=== PATIENT | female | born 2000 | race Caucasian/White ===

== ENCOUNTER 2021-09-08 19:21 | Emergency (ER) | payer OTHER, SELFPAY ==
--- NOTE | ~2021-09-08 | CT_ITS ---
EXAMINATION: CT abdomen pelvis w con INDICATION: Right upper quadrant pain TECHNIQUE: Computed tomographic images of the abdomen and pelvis were obtained after the administrati on of 100 cc of Omnipaque 350 intravenous contrast. The dose-length product (DLP) was 1171.14 mGy-cm. Automated exposure control and iterative reconstruction technique were employed. COMPARISON: None available FINDINGS: Minimal dependent atelectasis is present in the lung bases. The heart size is normal. The l iver, spleen, pancreas, gallbladder, and adrenal glands are normal. The kidneys are unremarkable. No pathologically enlarged abdominal or pelvic lymph nodes are identified. There is no free intraperiton eal gas or evidence of bowel obstruction. The appendix is normal. There is a 3.3 cm mass of the right ovary containing macroscopic fat, calcification, and soft tissue density, consistent with a dermoid. IMPRESSION: 1. No CT correlate for the patient's symptoms. 2. 3.3 cm right ovarian dermoid. Correlation with any prior imaging is recommended. Consider ultrasou nd follow-up in 8-12 weeks if unavailable. Reviewed, dictated and finalized at location F. THESIOLOG[employer] TEACHER IMPRESSION: 1. No CT correlate for the patient's symptoms. 2. 3.3 cm right ovarian dermoid. Correlation with any prior imaging is recommen ded. Consider ultrasound follow-up in 8-12 weeks if unavailable.
[2021-09-08 19:49] VITALS: BP 128/79; PULSE 50; RESP 18; TEMP 36.1; O2SAT 100
--- NOTE | 2021-09-08 19:52 | PC.NURSE ---
states SI attempt was a long time ago . Also states her presenting pain has been present for a long time and it is hard for me to tell when asked to describe the pain.
[2021-09-08 20:41] LABS: Basophils Absolute Auto 0.1 K/mm3 (0.0-0.1); Basophils Percent Auto 0.4 % (0.2-1.2); Eosinophils Absolute Auto 0.1 K/mm3 (0-0.3); Hematocrit 45.1 % (37.0-47.0); Hemoglobin 14.9 g/dL (12.0-15.0); Immature Granulocyte Absolute 0.03 K/mm3 (0.00-0.031); Immature Granulocyte Percent A 0.3 % (0-0.5); Lymphocytes Absolute Auto 2.69 K/mm3 (0.9-3.2); Lymphocytes Percent Auto 23.4 % (18.3-44.2); Mean Corpuscular Hemoglobin 29.2 pg (26-34); Mean Corpuscular Volume 88.3 fl (80-100); Mean Platelet Volume 10.1 fl (7.4-10.4); Monocytes Absolute Auto 0.6 K/mm3 (0.1-0.6); Monocytes Percent Auto 4.8 % (2.6-8.5); Neutrophils Absolute Auto 8.1 K/mm3 (1.3-6.7); Neutrophils Percent Auto 70.1 % (45.5-73.1); Platelet Count Result 337 k/mm3 (150-375); Red Blood Count 5.11 M/mm3 (4.2-5.4); Red Cell Distribution Width 13.2 % (11.5-14.5); White Blood Count 11.5 K/mm3 (4.5-10.0)
--- NOTE | 2021-09-08 20:44 | ED.ABDPAIN ---
HPI - Abdominal Pain General Chief Complaint: Abdominal Pain Stated Complaint: abd pain/vomiting Time Seen by Provider: 09/08/21 20:16 Source: patient and RN notes reviewed Mode of arrival: ambulatory Limitations: no limitations History of Present Illness HPI narrative: This is 21 year old female with history of ovarian cyst who presents for evaluation of right upper abdominal pain. She developed right upper abdominal pain with nausea and vomiting today. She reports 2 episodes of emesis. She was worried her pain was due to her right ovarian cyst. She describes her pain has cramping and nonradiating. Her pain has resolved at this time. She denies any fever, chills or urinary complaints. She reports diarrhea but that is normal for her. Related Data Home Medications Medication Instructions Recorded Confirmed paroxetine HCl mg PO 09/08/21 trazodone DAILY 09/08/21 Allergies Allergy/AdvReac Type Severity Reaction Status Date / Time No Known Allergies Allergy Mild Verified 09/08/21 19:53 Review of Systems Review of Systems: All systems reviewed & are unremarkable except as noted in HPI and below PMFSH Past Medical History Medical History (Updated 09/08/21 @ 23:17 by Laura Bedolla MD) Ovarian cyst, right Social History Social History (Updated 09/08/21 @ 20:51 by Laura Bedolla MD) Smoking status: Never smoker Exam Const: General: no acute distress and alert Orientation/consciousness: patient oriented x3 Eyes: EOM: EOMs intact bilaterally Chest: Chest palpation & inspection: normal inspection of the chest Resp: Effort & Inspection: normal respiratory effort and no retractions Auscultation: clear to auscultation bilaterally Cardio: Rate: regular rate Rhythm: regular rhythm Heart sounds: no murmurs GI: GI Palp: Yes Soft to palpation, Yes Tenderness to palpation present (GI) (mild RUQ), No Guarding due to palpation present (GI) and No Rigid due to palpation Auscultation: normal bowel sounds Neuro: General: patient oriented x3, moves all extremities and CN's II-XI intact bilaterally Psych: Mental Status: mental status grossly normal Affect: normal affect Course Reevaluation(s) Reevaluation #1: I Discussed with patient and her mother CT findings. No gallstones or cholecystitis on CT Date: 09/08/21 Time: 23:15 Vital Signs Vital signs: Vital Signs Temperature 96.9 F L 09/08/21 19:49 Pulse Rate 50 L 09/08/21 19:49 Respiratory Rate 18 09/08/21 19:49 Blood Pressure 128/79 09/08/21 19:49 Pulse Oximetry 100 09/08/21 19:49 Temperature 96.9 F L 09/08/21 19:49 Pulse Rate 63 09/09/21 00:00 Respiratory Rate 18 09/09/21 00:00 Blood Pressure 105/63 09/09/21 00:00 Pulse Oximetry 99 09/09/21 00:00 MDM - Abdominal Pain Lab Data Attestation: I reviewed the patient's lab results. Result diagrams: 09/08/21 20:34 09/08/21 20:34 Labs: Lab Results 09/08/21 09/08/21 09/08/21 Range/Units 20:34 20:34 20:34 WBC 11.5 H (4.5-10.0) K/mm3 RBC 5.11 (4.2-5.4) M/mm3 Hgb 14.9 (12.0-15.0) g/dL Hct 45.1 (37.0-47.0) % MCV 88.3 (80-100) fl MCH 29.2 (26-34) pg MCHC 33.0 (32-36) g/dl RDW 13.2 (11.5-14.5) % Plt Count 337 (150-375) k/mm3 MPV 10.1 (7.4-10.4) fl Immature Gran % (Auto) 0.3 (0-0.5) % Neut % (Auto) 70.1 (45.5-73.1) % Lymph % (Auto) 23.4 (18.3-44.2) % Anderson % (Auto) 4.8 (2.6-8.5) % Eos % (Auto) 1.0 (0-4.4) % Baso % (Auto) 0.4 (0.2-1.2) % Lymph # (Auto) 2.69 (0.9-3.2) K/mm3 Anderson # (Auto) 0.6 (0.1-0.6) K/mm3 Eos # (Auto) 0.1 (0-0.3) K/mm3 Baso # (Auto) 0.1 (0.0-0.1) K/mm3 Abs Immat Gran (auto) 0.03 (0.00-0.031) K/mm3 Absolute Neuts (auto) 8.1 H (1.3-6.7) K/mm3 Absolute Nucleated RBC 0.0 (0.0-0.012) K/mm3 Nucleated RBC % 0.0 (0.0-0.2) % Sodium 137 (137-145) mmol/L Potassium 4.0 (3.4-5.0) mmol/L Chl
[2021-09-08 20:57] LABS: Alanine Aminotransferase 19 U/L (4-35); Albumin Level 4.8 g/dL (3.5-5.1); Alkaline Phosphatase 63 U/L (38-126); Anion Gap 11 mmol/L (8-16); Aspartate Amino Transferase 23 U/L (14-36); Bilirubin,Total 0.2 mg/dL (0.2-1.3); Blood Urea Nitrogen 10 mg/dL (7-17); Calcium 9.6 mg/dL (8.4-10.2); Carbon Dioxide 24 mmol/L (22-30); Chloride 102 mmol/L (98-107); Estimated CRCL calculation 120 ml/min; Estimated Glomerular Filt Rate > 60; Glucose 119 mg/dL (65-110); Lipase 79 U/L (23-300); Sodium 137 mmol/L (137-145)
[2021-09-08 21:02] LABS: Add Urine Microscopic? YES; Appearance Urine Cloudy (Clear); Bacteria Urine Trace /hpf; Bilirubin Urine Negative (Negative); Blood Urine 3+ (Negative); Color Urine Yellow (Yellow); Glucose Urine UA Negative (Negative); Ketones Urine Negative (Negative); Leukocyte Esterase Ur Negative LEU/UL (Negative); Mucus Urine Rare /lpf; Nitrate Urine Negative (Negative); Protein Urine 1+ mg/dL (Negative); RBC Urine >75 /hpf (0-2); Specific Grav Ur 1.021 (1.001-1.035); Squamous Epithelial Cell Urine Few /hpf (Few); Urobilinogen Urine Negative mg/dL (<2.0)
[2021-09-08 21:43] VITALS: BP 136/84; PULSE 64; RESP 16; O2SAT 99
[2021-09-09] VITALS: BP 105/63; PULSE 63; RESP 18; O2SAT 99
== END 2021-09-09 00:02 | disposition home or self-care (01) ==
PROVIDERS: Emergency Provider General Practice
DX: D27.0 Benign neoplasm of right ovary (principal)
CPT/HCPCS: 36415; 74177; 80053; 81001; 81025; 83690; 85025; 99284; Q9967

== ENCOUNTER 2021-10-01 01:52 | Day surgery (SDC) | payer OTHER, SELFPAY ==
[2021-09-29 15:18] VITALS: BMI 40.2
--- NOTE | 2021-09-29 15:25 | PC.NURSE ---
Report to the Outpatient Waiting Room, entrance under the green pavilion located off [facility], at time 0600 on date 10/01/21. OR Time: 0730. - You will be asked a series of questions to screen for COVID 19 for your protection. - A mask is required within the hospital. - No visitors are allowed at this time. Preoperative COVID Testing Requirements: No COVID Test needed if: (proof is required; if not received patient will have Rapid Test prior to entry) - Patient has received COVID Vaccine at least 14 days prior to procedure date or - Patient has positive COVID test result within last 90 days of surgery date. COVID Test needed if above criteria is not met Patients may have clear liquids (water, carbonated beverages, clear teas, apple juice) until 3 hours prior to surgery with a maximum of 20 ounces. - No food from midnight until time of surgery Take the following medications with a SIP of water the morning of surgery: NONE Medications to discontinue per physician: VITAMINS/SUPPLEMENTS Date to take last dose: NO MORE UNTIL AFTER SURGERY Please no make-up, nail mont[place]gr[place], hairspray, perfume, deodorant, or body powder the day of surgery. No jewelry (including any body piercings) or valuables the day of surgery, leave them at home. Please take a shower or bath the night before, or the morning of, surgery with an antibacterial soap. Wear comfortable, loose fitting clothing. - Jewelry must be removed prior to entering the operating room. Rings and piercings that are not removed may be cut off. - The hospital will not accept responsibility for valuables. - Please leave all valuables, including medications, at home the day of surgery. If you are going home after surgery, a licensed city driver must drive you home. - NO public transportation without another adult. - We recommend that an adult stay with you for 24 hours following discharge. - We also recommend that you do not drive, make important decision, drink alcoholic beverages, or take any drugs that were not prescribed by your health care provider for at least 24 hours after your discharge time. Follow any additional instructions given to you from your surgeon. Telephone instructions given to ISAURO YO and asked if any additional questions and then verbalized understanding. Patient advised to call surgeon office or pre surgery nurse liaison [phone] if any additional questions.
[2021-10-01] VITALS (7 sets, daily range): BP systolic 96–111; BP diastolic 55–67; PULSE 56–103; RESP 16–20; TEMP 36.2–36.3; O2SAT 95–100
[2021-10-01] MEDS: ACETAMINOPHEN 500 MG TABLET 1000 MG PO (06:29)
[2021-10-01] MEDS: LACTATED RINGERS 1,000 ML 30 ML IV CONT (06:30)
[2021-10-01] MEDS: KETOROLAC 15 MG/ML VIAL (*BKC) IV PUSH (06:38)
--- NOTE | 2021-10-01 07:08 | P.PNAN_ITS ---
Anes - Initial Pre Proc Eval Procedure: Operation Date: 10/01/21 07:30 Proposed Procedures p Laparoscopic Right Ovarian Cystectomy - Rubio Rico MD Date/Time: 10/01/21 07:08 Surgeon: Rubio Rico MD Pre Op Diagnosis: Benign Neoplasm of Unspecified Origin Patient Data Age: 21 Gender: F Height: 1.57 m Weight: 95 kg Allergies Allergy/AdvReac Type Severity Reaction Status Date / Time No Known Allergies Allergy Mild Verified 09/29/21 15:16 Home Medications Medication Instructions Recorded Confirmed Type paroxetine HCl 30 mg PO HS 09/08/21 10/01/21 History trazodone 25 mg PO HS 09/08/21 10/01/21 History cholecalciferol (vitamin D3) 125 mcg PO HS 09/29/21 10/01/21 History [Vitamin D3] loratadine [Claritin] 10 mg PO DAILY 09/29/21 10/01/21 History Patient hx anesthesia problems: none Family hx anesthesia problems: none Results Review: All pre-operative results and documents have been reviewed as part of the pre-operative evaluation. [facility] Past Medical History Medical History Anxiety Depression Ovarian cyst, right Social History Social History Smoking status: Current every day smoker Tobacco type: e-cigarettes/vaping Alcohol intake: never Substance use: current Substance use type: marijuana Living arrangements: with family Spiritual care concerns: No Anes - Eval Final PreProcedure Day of Procedure 10/01/21 07:08 Patient weight: obese Heart: regular rate and rhythm Lungs: clear to auscultation Airway: Mallampati scale class II Neurological: alert and oriented Last oral intake: >/= 8 hours ASA classification: II Emergent: no Anesthetic plan: proceed Anesthesia type and monitoring: general ETT and standard monitoring Results Review: All pre-operative results and documents have been reviewed as part of the pre-operative evaluation. Informed Consent: The patient's anesthetic plan and its attendant risks and benefits were discussed with the patient/family/POA. Questions were solicited and answers provided to the satisfaction of the patient/family/POA.
--- NOTE | 2021-10-01 07:21 | WPDHPUPDATE1 ---
History and Physical Update Update Date/Time: 10/01/21 07:21 History and Physical has been reviewed, including an updated exam of the patient. There are NO changes in the patient's condition. Risks, benefits, and alternatives have been discussed and questions answered. Patient agrees to proceed with procedure.
--- NOTE | 2021-10-01 08:38 | W.PM.PROC2 ---
Procedure Note - Detailed Date of Procedure 10/01/21 Pre-op Diagnosis Right ovarian mass-teratoma. Post-op Diagnosis same Procedure Performed Laparoscopic resection of right ovarian mass. Surgeon Rubio Rico MD Anesthesia general Indications Pelvic pain Findings 5 cm right ovarian mass, otherwise normal pelvic organs. Description of Procedure The patient was taken to the operating room. She was prepped and draped in the dorsal lithotomy position after induction general anesthesia. A 5 mm incision was made with a scalpel on the abdominal skin in the left upper quadrant of the abdomen. A 5 mm trocar was inserted into the intra-abdominal cavity under direct visualization the scope. In the same fashion a 11 mm left lower quadrant trocar was inserted and a 11 mm infraumbilical trocar was inserted. The right ovary was grasped. A an incision was made at an area suspected to be the margin of the mass. The margins the mass peeled away from the ovarian parenchyma and a distinct way. It could be easily . About 1/3 of the ovary was left on the adnexa. The dissection was primarily done with blunt force. Some a incisions were made using scissors to make it free of the ovary. The mass was placed in endobag and taken out the left lower quadrant trocar site. The cut surface of the ovary was cauterized and made hemostatic with unipolar and LigaSure cautery. The pelvis was irrigated. The pneumoperitoneum was reduced. The trocars were removed. Skin was closed with subcuticular 4 micro. The patient's incisions were covered with Dermabond. She was taken recovery room in stable condition. Sponge lap and needle counts were correct x2. Estimated Blood Loss 20 Pathology yes Complications No immediate complications Condition stable Disposition same day
== END 2021-10-01 10:45 | disposition home or self-care (01) ==
PROVIDERS: Visit Provider Obstetrics & Gynecology
PROC: (CPT 49320; principal; 2021-10-01 07:30)
DX: D27.0 Benign neoplasm of right ovary (principal); F41.8 Other specified anxiety disorders; F12.90 Cannabis use, unspecified, uncomplicated; F17.290 Nicotine dependence, other tobacco product, uncomplicated; E66.9 Obesity, unspecified; Z68.38 Body mass index [BMI] 38.0-38.9, adult
CPT/HCPCS: 58661; 88304; 88305; A9270; J1100; J1885; J2250; J2405; J2704; J3010; J7030; J7120

== ENCOUNTER 2022-01-21 13:49 | Emergency (ER) | payer OTHER, SELFPAY ==
[2022-01-21] VITALS (8 sets, daily range): BP systolic 122–138; BP diastolic 67–86; PULSE 62–112; RESP 15–17; TEMP 36.6; O2SAT 97–100
--- NOTE | ~2022-01-21 | US_ITS ---
US right upper quadrant INDICATION: Abnormal CT. PROCEDURE: Realtime right upper abdominal ultrasound. COMPARISON: No prior studies for comparison. FINDINGS: The pancreas is normal without focal mass or pancreatic ductal dilation. Liver echotexture is normal without focal mass or intrahepatic biliary dilatation. There is normal directional flow i n the portal vein. Gallbladder wall is thickened and edematous. There are stones in the gallbladder fundus. Common bile duct measures 4 mm. Positive sonographic Cervantes's sign. IMPRESSION: 1: Cholelithiasis with thickened edematous wall and positive sonographic Cervantes's sign. This constell ation of findings is compatible with acute cholecystitis. Clinically correlate. Reviewed, dictated and finalized at location A. IMPRESSION: 1: Cholelithiasis with thickened edematous wall and positive sonographic Cervantes 's sign. This constellation of findings is compatible with acute cholecystitis. Clinically correlate.
--- NOTE | ~2022-01-21 | CT_ITS ---
EXAMINATION: CT abdomen pelvis w con DATE: 01/21/2022 15:20 INDICATION: Abdominal pain TECHNIQUE: Computed tomography (CT) of the abdomen and pelvis was performed with 75 mL Omnipaque-300 intravenous contrast. Automated exposure control and iterative reconstruction technique were employed . The dose-length product was 1055.56 mGy-cm. COMPARISON: 09/08/2021 FINDINGS: Lung bases are clear. Visualized inferior heart is normal. No pericardial or pleural effusion. Small sliding-type hiatal hernia. There is diffuse edematous wall thickening of the gallbladder which is di lated to 4.7 cm in maximal diameter. Liver, spleen, pancreas, bilateral adrenal glands and kidneys ar e normal. Bowels including appendix are normal. Bladder, anteverted uterus and right adnexa are jessica l. 2 cm peripherally enhancing corpus luteum cyst at the right ovary. Small amount of ascites at the foramen of [place] and in the pelvis. No abscess or free intraperitoneal gas. No pathologically enlar ged abdominal or pelvic lymphadenopathy. Bones are unremarkable. IMPRESSION: 1. Edematous wall thickening of the distended gallbladder suspicious for acute cholecystitis. Correla te for Cervantes sign and if clinically indicated could consider either right upper quadrant ultrasound or HIDA scan for further evaluation. 2. Small sliding-type hiatal hernia. Reviewed, dictated and finalized at location B. IMPRESSION: 1. Edematous wall thickening of the distended gallbladder suspicious for acute cholecystitis. Correlate for Cervantes sign and if clinically indicated could cons ider either right upper quadrant ultrasound or HIDA scan for further evaluation . 2. Small sliding-type hiatal hernia.
[2022-01-21 14:19] LABS: Basophils Percent Auto 0.2 % (0.2-1.2); Eosinophils Percent Auto 0.1 % (0-4.4); Hemoglobin 15.4 g/dL (12.0-15.0); Immature Granulocyte Absolute 0.11 K/mm3 (0.00-0.031); Immature Granulocyte Percent A 0.6 % (0-0.5); Lymphocytes Absolute Auto 1.02 K/mm3 (0.9-3.2); Lymphocytes Percent Auto 5.3 % (18.3-44.2); Mean Corpuscular HGB Conc 34.2 g/dl (32-36); Mean Corpuscular Hemoglobin 29.3 pg (26-34); Mean Corpuscular Volume 85.6 fl (80-100); Mean Platelet Volume 10.1 fl (7.4-10.4); Monocytes Absolute Auto 0.7 K/mm3 (0.1-0.6); Monocytes Percent Auto 3.7 % (2.6-8.5); Neutrophils Absolute Auto 17.3 K/mm3 (1.3-6.7); Neutrophils Percent Auto 90.1 % (45.5-73.1); Platelet Count Result 386 k/mm3 (150-375); Red Blood Count 5.26 M/mm3 (4.2-5.4); Red Cell Distribution Width 12.9 % (11.5-14.5); White Blood Count 19.2 K/mm3 (4.5-10.0)
[2022-01-21 14:26] LABS: Alanine Aminotransferase 27 U/L (6-35); Albumin Level 5.6 g/dL (3.5-5.1); Alkaline Phosphatase 83 U/L (38-126); Anion Gap 16 mmol/L (8-16); Aspartate Amino Transferase 35 U/L (14-36); Bilirubin,Total 0.9 mg/dL (0.2-1.3); Blood Urea Nitrogen 6 mg/dL (7-17); Calcium 10.1 mg/dL (8.4-10.2); Carbon Dioxide 17 mmol/L (22-30); Chloride 98 mmol/L (98-107); Estimated CRCL calculation 154 ml/min; Estimated Glomerular Filt Rate > 60; Glucose 140 mg/dL (65-110); Lipase 44 U/L (23-300); Potassium 3.6 mmol/L (3.4-5.0); Sodium 131 mmol/L (137-145)
[2022-01-21 14:29] LABS: Appearance Urine Clear (Clear); Bilirubin Urine Negative (Negative); Blood Urine 1+ (Negative); Color Urine Yellow (Yellow); Glucose Urine UA Negative (Negative); Ketones Urine 2+ mg/dL (Negative); Leukocyte Esterase Ur Negative LEU/UL (Negative); Nitrate Urine Negative (Negative); Protein Urine Negative (Negative); Urobilinogen Urine 0.2 mg/dL (<2.0)
[2022-01-21 14:37] LABS: RBC Urine 0-2 /hpf (0-2); Squamous Epithelial Cell Urine Rare /hpf (Few); WBC Urine 0-3 /hpf
[2022-01-21 14:43] LABS: Add Urine Microscopic? YES
[2022-01-21] MEDS: ONDANSETRON INJ 4 MG/2 ML VIAL IV PUSH (15:08)
[2022-01-21] MEDS: LACTATED RINGERS 1,000 ML 999 ML IV CONT (15:08)
[2022-01-21] MEDS: ONDANSETRON INJ 4 MG/2 ML VIAL (17:44)
--- NOTE | 2022-01-21 19:09 | ED.NAVMDI ---
HPI - Nausea/Vomiting/Diarrhea General Chief complaint: Nausea/Vomiting/Diarrhea Stated complaint: n/v Time Seen by Provider: 01/21/22 14:22 Source: patient Mode of arrival: ambulatory Limitations: no limitations History of Present Illness HPI Narrative: 21-year-old female presents today with complaints of right upper quadrant pain, right upper back pain, nausea that started yesterday about 2 hours after eating wings. Patient denies history of symptoms similar. Patient does states she had a fever at home of 100.9 but currently afebrile. Patient denies vomiting but does endorse nausea. Patient denies urinary symptoms. Denies chance of . Related Data Home Medications Medication Instructions Recorded Confirmed paroxetine HCl 30 mg tablet 30 mg PO HS 09/08/21 10/01/21 trazodone 50 mg tablet 25 mg PO HS 09/08/21 10/01/21 cholecalciferol (vitamin D3) 125 125 mcg PO HS 09/29/21 10/01/21 mcg (5,000 unit) tablet (Vitamin D3) loratadine 10 mg tablet (Claritin) 10 mg PO DAILY 09/29/21 10/01/21 Allergies Allergy/AdvReac Type Severity Reaction Status Date / Time No Known Allergies Allergy Mild Verified 01/21/22 14:22 Review of Systems Review of Systems: CONSTITUTIONAL: Denies fever, chills, or sweats. EYES: Denies visual changes, redness, or discharge. ENT: Denies rhinorrhea, congestion, sore throat, or otalgia. CARDIOVASCULAR: Denies chest pain, palpitations, or edema. RESPIRATORY: Denies cough or dyspnea. GASTROINTESTINAL: Right upper abdominal pain with nausea. Denies diarrhea. GENITOURINARY: Denies dysuria or hematuria. SKIN: Denies rash or itching. MUSCULOSKELETAL: Denies back pain, joint pain, or myalgia. NEUROLOGIC: Denies headache, numbness, dizziness, or weakness. PSYCHIATRIC: Denies anxiety or depression. [facility] Past Medical History Medical History Anxiety Depression Ovarian cyst, right Social History Social History Smoking status: Current every day smoker Tobacco type: e-cigarettes/vaping Alcohol intake: never Substance use: current Substance use type: marijuana Gender identity (if verbalized by the patient): Female Sexual Orientation (if Verbalized by the Patient): Straight or Heterosexual Spiritual care concerns: No Exam Narrative: GENERAL: Well-appearing, well-nourished, and in no acute distress. HEAD: Normocephalic, atraumatic. EYES: PERRLA and EOMI. ENT: Nares clear, no rhinorrhea or epistaxis. Mucous membranes moist. Oropharynx without tonsillar hypertrophy exudate or other lesions. Bilateral TMs pearly norris nonbulging NECK: Supple. No adenopathy or masses. No carotid bruits or JVD CHEST: Clear to auscultation. No respiratory distress. No wheezes rales or rhonchi HEART: Regular rate and rhythm. No murmur heard. Normal peripheral pulses. ABDOMEN: Right upper quadrant tenderness, positive Cervantes sign. Nondistended, normal active bowel sounds. EXTREMITIES: Normal range of motion. No edema. SKIN: Warm, dry, no rash. NEURO: No focal deficits. Alert and oriented x3. PSYCH: Normal mood and affect. Course Course Emergency Course: Reviewed labs and CT with patient and family. Patient aware consulted surgery, Dr. Ngo. Patient with tolerable pain during entire stay. Patient be discharged home on Cipro p.o. and to follow-up with Dr. Nog next week. She is aware to return with any new or worsening symptoms. Consultations Consultation #1: Dr. Ngo consulted. Patient's case reviewed. Recommends discharge home with Cipro and follow-up in 1 week. Vital Signs Vital signs: Vital Signs Temperature 36.6 C 01/21/22 13:57 Pulse Rate 112 H 01/21/22 13:57 Respiratory Rate 16 01/21/22 13:57 Blood Pressure 134/74 01/21/22 13:57 Pulse Oximetry 100 01/21/22 13:57 Oxygen Delivery Room Air 01/21/22 13:57 Temperature 36.6 C 01/21/22 13:57
== END 2022-01-21 17:40 | disposition home or self-care (01) ==
PROVIDERS: Family Medicine; Emergency Provider Nurse Practitioner Family
DX: K80.00 Calculus of gallbladder with acute cholecystitis without obstruction (principal); F41.9 Anxiety disorder, unspecified; F32.A Depression, unspecified; F17.290 Nicotine dependence, other tobacco product, uncomplicated; K44.9 Diaphragmatic hernia without obstruction or gangrene
CPT/HCPCS: 36415; 74177; 76705; 80053; 81001; 81025; 83690; 85025; 96361; 96374; 96375; 99284; J2405; J2543; J7120; Q9967

== ENCOUNTER 2022-01-24 12:59 | Observation (INO) | payer OTHER, SELFPAY ==
[2022-01-24] VITALS (18 sets, daily range): BP systolic 99–140; BP diastolic 41–80; PULSE 47–88; RESP 11–25; TEMP 36.4–37.1; O2SAT 100; BMI 34.7
--- NOTE | ~2022-01-24 | MR_ITS ---
EXAMINATION: MR MRCP wo/w con/w 3D wo ind DATE: 01/27/2022 09:13 INDICATION: Jaundice. TECHNIQUE: Magnetic resonance imaging (MRI) of the abdomen was performed without and with 17 mL Multi Jeane intravenous contrast. Sequences included coronal T2-weighted FS FSE, coronal T2-weighted FSE, a xial T1-weighted LAVA, coronal FS FIESTA, axial dual-echo T1-weighted SPGR, coronal lava-FLEX, sagitt al T2-weighted FSE, axial T2-weighted FSE, and axial DWI. Thick-slab T2-weighted FSE images were obta ined for magnetic resonance cholangiopancreatography (MRCP). Maximum intensity projection 3-D reconst ructions of the volumetric data were created by the technologist. Postcontrast sequences included cor onal LAVA-flex and time course of axial T1-weighted LAVA. COMPARISON: CT abdomen and pelvis 01/24/2022, 01/21/2022, ultrasound 01/21/2022 FINDINGS: ABDOMEN MRI: There is a 2.1 cm mass in segment VIII of the liver that demonstrates arterial hyperenha ncement without washout. The mass is isointense to normal liver on other sequences. The gallbladder i s normal in size and contains gallstones. Gallbladder wall thickening is noted. The pancreas, spleen, adrenal glands, and kidneys are normal. There are no dilated loops of bowel. There is physiologic fl uid in the pelvis. There are no pathologically enlarged lymph nodes. ABDOMEN MRCP: The common duct is normal and measures 3 mm. No choledocholithiasis. IMPRESSION: 1. Acute cholecystitis. 2. Normal common duct. No choledocholithiasis. 3. 2.1 cm liver mass, likely focal nodular hyperplasia. Reviewed, dictated and finalized at location A.
--- NOTE | ~2022-01-24 | CT_ITS ---
EXAMINATION: CT abdomen pelvis wo con DATE: 01/24/2022 16:19 INDICATION: Jaundice. Right upper quadrant pain. History of cholelithiasis. Nausea and vomiting. TECHNIQUE: Computed tomography (CT) of the abdomen and pelvis was performed without intravenous contr ast. The dose-length product was 1155.41 mGy-cm. Automated exposure control and iterative reconstruct ion technique were employed. COMPARISON: CT dated 01/21/2022. Ultrasound dated 01/21/2022 FINDINGS: Lung bases are unremarkable. Normal heart size. No significant pleural or pericardial effus ion. There is significant thickening of the gallbladder wall with mild pericholecystic fatty infiltration, consistent with cholecystitis. No radiopaque stones identified by CT. The liver, spleen, pancreas, a drenal glands and kidneys are unremarkable. Nonobstructive bowel gas pattern. Colonic diverticulosis without evidence for diverticulitis. There is free fluid in the pelvis. IMPRESSION: 1. Thickened gallbladder wall with surrounding phlegmonous change and free fluid in the pelvis. Findi ngs compatible with acute cholecystitis as discussed on prior CT and ultrasound examination. Recommen d surgical consultation. Reviewed, dictated and finalized at location A. IMPRESSION: 1. Thickened gallbladder wall with surrounding phlegmonous change and free flui d in the pelvis. Findings compatible with acute cholecystitis as discussed on p rior CT and ultrasound examination. Recommend surgical consultation.
--- NOTE | ~2022-01-24 | NM_ITS ---
EXAMINATION: NM hepatobiliary w pharm DATE: 01/27/2022 12:07 INDICATION: Acute cholecystitis. COMPARISON: MRCP 01/27/2022 TECHNIQUE: 6 mCi Tc-99m mebrofenin (Choletec) was administered intravenously. Scintigraphic images o f the abdomen were obtained for one hour. Then, 2 mg morphine IV was administered, and imaging was co ntinued for 30 minutes. FINDINGS: There is normal clearance of radiotracer from the blood pool. There is homogeneous tracer u ptake by the liver. Activity progresses to the bowel. There is no activity in the gallbladder. IMPRESSION: 1. Acute cholecystitis. Reviewed, dictated and finalized at location A. IMPRESSION: 1. Acute cholecystitis.
[2022-01-24 13:29] LABS: Basophils Absolute Auto 0.1 K/mm3 (0.0-0.1); Basophils Percent Auto 0.4 % (0.2-1.2); Eosinophils Absolute Auto 0.2 K/mm3 (0-0.3); Eosinophils Percent Auto 1.6 % (0-4.4); Hematocrit 43.2 % (37.0-47.0); Immature Granulocyte Absolute 0.08 K/mm3 (0.00-0.031); Immature Granulocyte Percent A 0.6 % (0-0.5); Lymphocytes Absolute Auto 2.24 K/mm3 (0.9-3.2); Lymphocytes Percent Auto 16.6 % (18.3-44.2); Mean Corpuscular HGB Conc 32.4 g/dl (32-36); Mean Corpuscular Hemoglobin 28.9 pg (26-34); Mean Corpuscular Volume 89.3 fl (80-100); Mean Platelet Volume 10.1 fl (7.4-10.4); Monocytes Absolute Auto 0.7 K/mm3 (0.1-0.6); Monocytes Percent Auto 5.4 % (2.6-8.5); Neutrophils Absolute Auto 10.2 K/mm3 (1.3-6.7); Neutrophils Percent Auto 75.4 % (45.5-73.1); Platelet Count Result 347 k/mm3 (150-375); Red Blood Count 4.84 M/mm3 (4.2-5.4); Red Cell Distribution Width 13.1 % (11.5-14.5); White Blood Count 13.5 K/mm3 (4.5-10.0)
[2022-01-24 13:38] LABS: Lactic Acid Reflex 1.9 mmol/L (0.7-2.0)
[2022-01-24 13:39] LABS: Alanine Aminotransferase 100 U/L (6-35); Albumin Level 4.6 g/dL (3.5-5.1); Alkaline Phosphatase 302 U/L (38-126); Anion Gap 10 mmol/L (8-16); Aspartate Amino Transferase 224 U/L (14-36); Bilirubin,Total 2.5 mg/dL (0.2-1.3); Blood Urea Nitrogen 9 mg/dL (7-17); Calcium 9.6 mg/dL (8.4-10.2); Carbon Dioxide 29 mmol/L (22-30); Chloride 99 mmol/L (98-107); Estimated CRCL calculation 136 ml/min; Estimated Glomerular Filt Rate > 60; Glucose 100 mg/dL (65-110); Lipase 52 U/L (23-300); Potassium 3.6 mmol/L (3.4-5.0); Sodium 138 mmol/L (137-145)
[2022-01-24] MEDS: HYDROmorphone HCL INJ (*CRX) 1 MG/ML SYR 0.5 MG IV PUSH ×3 (13:57→22:08)
[2022-01-24] MEDS: ONDANSETRON INJ 4 MG/2 ML VIAL IV PUSH ×2 (13:57→18:16)
--- NOTE | 2022-01-24 13:58 | ED.GENADULT ---
HPI - General Adult General Chief complaint: Abdominal Pain Stated complaint: abdominal pain with n/v - gallbladder dx Time Seen by Provider: 01/24/22 13:07 History of Present Illness HPI narrative: 21-year-old female with history of cholelithiasis presented to the emergency department for worsening right upper quadrant pain. Patient was evaluated in the emergency department on 01/21 and diagnosed with cholelithiasis by ultrasound Patient did have a leukocytosis at that time, surgery was consulted and patient was started on Cipro and discharged to home due to her improved symptoms. Patient did call to schedule follow-up but does have follow-up scheduled for 02/05. Patient states this morning she had slept well but after having popcorn she had worsening right upper quadrant pain that does radiate to her back. Patient does report associated nausea and vomiting. Related Data Home Medications Medication Instructions Recorded Confirmed paroxetine HCl 30 mg tablet 30 mg PO HS 09/08/21 10/01/21 trazodone 50 mg tablet 25 mg PO HS 09/08/21 10/01/21 cholecalciferol (vitamin D3) 125 125 mcg PO HS 09/29/21 10/01/21 mcg (5,000 unit) tablet (Vitamin D3) loratadine 10 mg tablet (Claritin) 10 mg PO DAILY 09/29/21 10/01/21 Allergies Allergy/AdvReac Type Severity Reaction Status Date / Time No Known Allergies Allergy Verified 01/24/22 13:51 Review of Systems Review of Systems: CONSTITUTIONAL: Denies fever, chills, or sweats. EYES: Denies visual changes, redness, or discharge. ENT: Denies rhinorrhea, congestion, sore throat, or otalgia. CARDIOVASCULAR: Denies chest pain, palpitations, or edema. RESPIRATORY: Denies cough or dyspnea. GASTROINTESTINAL: See HPI GENITOURINARY: Denies dysuria or hematuria. SKIN: Denies rash or itching. MUSCULOSKELETAL: Denies back pain, joint pain, or myalgia. NEUROLOGIC: Denies headache, numbness, or weakness. PSYCHIATRIC: Denies anxiety or depression. [facility] Past Medical History Medical History Anxiety Cystic teratoma Left oophorectomy Depression Marijuana use Obesity Surgical History Surgical History H/O ovarian cystectomy Family History Family History Other Carcinoma of colon Neely syndrome Social History Social History Smoking status: Current every day smoker Tobacco type: e-cigarettes/vaping Alcohol intake: never Substance use: current Substance use type: marijuana Gender identity (if verbalized by the patient): Female Sexual Orientation (if Verbalized by the Patient): Straight or Heterosexual Spiritual care concerns: No Exam Narrative: APPEARANCE: Well appearing, no pain, no distress, well-nourished. HEAD: normocephalic, atraumatic. EYES: PERRLA/EOMI, conjunctivae clear. NOSE: Normal no drainage NECK: Supple. No adenopathy, no masses. RESPIRATORY: Airway patent, respirations nonlabored. Clear to auscultation bilaterally, no rales, rhonchi, wheezing. CARDIOVASCULAR: Regular rate and rhythm without murmurs rubs or gallops. ABDOMINAL: Normal bowel sounds, reproducible right upper quadrant tenderness to palpation. MUSCULOSKELETAL: Moves all extremities. Strength/ROM intact, No edema, No calf tenderness. NEURO: Alert. Cranial nerves II through XII intact. Grossly intact SKIN: Warm, dry. Normal Color Course Course Emergency Course: Patient does have elevations in her T bili, AST, ALT alk phos since her visit on 01/21. On 01/21 patient had a leukocytosis of 19., Today it is 13.5. Patient is afebrile. GI was consulted. Recommended Zosyn. Extubating to do an ERCP tomorrow. Additionally Dr. Quinones was also consulted. Patient was admitted to the hospitalist. Patient and family were updated on the results of the diagnosis and plan for admission. [place]
[2022-01-24] MEDS: SODIUM CHLORIDE 0.9% IV 1,000 ML 999 ML IV CONT (13:59)
--- NOTE | 2022-01-24 14:36 | WPDGICN ---
GI Consult Note Consult date/time: 01/24/22 14:36 Reason for consult: Reason for consult abdominal pain and elevated liver tests. HPI: Aliza Salinas is a 21 year old female was seen at the request of the hospitalist with the patient's permission. Patient was examined the chart was reviewed. Impression: Elevated LFTs most likely secondary to choledocholithiasis. Gallstones with acute cholecystitis. GERD. Family history of colon cancer and Neely syndrome in patient's mother. History of cystic teratoma the left ovary. Status post left oophorectomy. Marijuana use. Recommendation: IV antibiotics. Recheck laboratory studies in a.m.. PPI b.i.d.. CT scan of the abdomen pelvis. If LFTs remained significantly elevated in a.m. will proceed with EGD-ERCP /MRCP. Patient should have colonoscopy as an outpatient. Genetic testing for Neely syndrome. Surgical consultation. History: This very pleasant lady with the above past medical history presented to the ED on 21 Jan 2022. At that time she was having 2 weeks of right-sided back pain. The pain worsened last Wednesday Precipitating the ED visit. CT imaging revealed: IMPRESSION: 1. Edematous wall thickening of the distended gallbladder suspicious for acute cholecystitis. Correlate for Cervantes sign and if clinically indicated could consider either right upper quadrant ultrasound or HIDA scan for further evaluation. 2. Small sliding-type hiatal hernia. The patient's transaminases at that time were normal. She was reported to have a white count of 19,000. The patient was given oral Cipro and instructed to follow-up with General surgery. Subsequently she had an ultrasound done revealing: IMPRESSION: 1: Cholelithiasis with thickened edematous wall and positive sonographic Cervantes's sign. This constellation of findings is compatible with acute cholecystitis. Clinically correlate. The patient was doing considerably better. She subsequently ate breakfast this morning and developed increasing abdominal pain that was somewhat severe. The. Occurred in the epigastric area and radiated to the right upper quadrant and back. She had associated nausea and vomiting. A fever was reported previously, however is not been documented since then arrival to the ED. The patient denies any scleral icterus, jaundice, bilirubin, acholic stools, melena or hematochezia. Patient has a history of heartburn on a regular basis prior to losing weight. She had difficulty with significant snoring and possible sleep apnea. The patient underwent a left oophorectomy for cystic teratoma and has since lost some weight and has had significant improvement in her heartburn. She denies any true dysphagia or odynophagia. She does have some difficulty with constipation the last 3 days or so. Patient prior to last Wednesday had 2 weeks of back pain that was pretty much constant. The pain occurred in the right flank. Patient's mother does have a history of Neely syndrome and colorectal cancer. The patient has not been tested. She had had complaints of chest pain. She attributes this to significant anxiety. When she comes down her chest pain abates. General: very pleasant patient in no acute distress.Patient very cooperative and resting comfortably. HEENT: Head was normocephalic sclerae is clear mouth without masses neck was supple. Heart: Rate rhythm regular without S3 or S4. Lungs: CTA. Abdomen: Soft with no guarding or rigidity. Bowel sounds were active. Neurologic: Cranial nerves 2 through 12 intact. No focal defects. No clonus. Musculoskeletal system: Revealed no joint tenderness or swelling no muscle atrophy. Extremities: Reveal no significant edema. Skin: Warm and dry with normal turgor. Mental status: intact. Patient is alert and oriented. The risk, complications and alternatives to EGD an ERCP were explained in detail the patient. These include, but are not limited to, hemorrhage,
[2022-01-24] MEDS: PIPERACILLIN/TAZOBACTAM SOD 4.5 GM in SODIUM CHLORIDE 0.9% IV 100 ML 200 ML IVPB ×2 (15:00→20:35)
[2022-01-24 15:40] LABS: INR 1.1; Prothrombin Time 13.5 Seconds (11.1-14.7)
[2022-01-24 15:44] LABS: Alanine Aminotransferase 104 U/L (6-35); Albumin Level 4.6 g/dL (3.5-5.1); Alkaline Phosphatase 304 U/L (38-126); Anion Gap 11 mmol/L (8-16); Aspartate Amino Transferase 222 U/L (14-36); Bilirubin Direct 0.2 mg/dL (0-0.3); Bilirubin,Total 2.4 mg/dL (0.2-1.3); Blood Urea Nitrogen 10 mg/dL (7-17); Calcium 9.6 mg/dL (8.4-10.2); Carbon Dioxide 27 mmol/L (22-30); Chloride 99 mmol/L (98-107); Estimated CRCL calculation 136 ml/min; Estimated Glomerular Filt Rate > 60; Glucose 100 mg/dL (65-110); Phosphorus 3.2 mg/dL (2.5-4.5); Potassium 3.7 mmol/L (3.4-5.0); Sodium 137 mmol/L (137-145)
[2022-01-24 15:59] LABS: Appearance Urine Clear (Clear); Bilirubin Urine 2+ (Negative); Color Urine Yellow (Yellow); Glucose Urine UA Negative (Negative); Ketones Urine 2+ mg/dL (Negative); Leukocyte Esterase Ur Negative LEU/UL (Negative); Nitrate Urine Negative (Negative); Protein Urine 1+ mg/dL (Negative); Urobilinogen Urine >=8.0 mg/dL (<2.0); pH Urine 8.5 (5.0-9.0)
[2022-01-24 16:21] LABS: Add Urine Microscopic? YES; Bacteria Urine Trace /hpf; Blood Urine Trace-Intact (Negative); Mucus Urine Rare /lpf; Squamous Epithelial Cell Urine Many /hpf (Few); WBC Urine 0-3 /hpf
--- NOTE | 2022-01-24 16:25 | ADMGEN ---
This patient, Aliza Salinas, was admitted to Medical Room 341-01. Patient/family oriented to hospital policies and general routines including ID bracelet, bed and alarms, visiting hours, pain management, procedures, bathroom and other care routines, personal items, smoking policy, room service/diet, and visiting hours. Information on how to activate the Rapid Response Team has been discussed. Patient/Family are encouraged to report perceived risks to care and to ask questions if they do not understand what they are told or what they should do.
[2022-01-24] MEDS: SODIUM CHLORIDE 0.9% IV 1,000 ML 125 ML IV CONT (17:21)
[2022-01-24] MEDS: BISACODYL 10 MG SUPPOSITORY RECTAL (17:22)
[2022-01-24] MEDS: PANTOPRAZOLE 40 MG TABLET PO (20:32)
--- NOTE | 2022-01-24 22:12 | PM.IMHP ---
H&P: HPI History of Present Illness Date/Time: Patient was placed observation status for expected length of stay less than 23 hours for management, will plan to re-evaluate tomorrow for improvement. 01/24/22 22:12 Chief Complaint: Abdominal pain Narrative: Ms. Salinas is a 21-year-old female who presented to the emergency room with complaints of right upper quadrant pain. Patient had been seen in the emergency room on 01/21/2022 and was diagnosed with cholelithiasis and general surgery was consulted. It was decided the patient could follow-up as an outpatient and patient was sent home with antibiotic therapy and was to follow up. Patient had been doing well, until this morning patient ate some popcorn and began having intense right upper quadrant pain. Patient denies any fever or chills. Patient states she has been constipated. Patient states she has been following a low-fat diet very closely. Patient denies any chest pain, shortness a breath, lightheadedness, dizziness, syncopal, or near syncopal episodes. Upon evaluation emergency room patient underwent CT of the abdomen pelvis which showed thickened gallbladder wall with surrounding phlegmonous changes and free fluid in the pelvis. Findings compatible with acute cholecystitis as discussed on prior CT and ultrasound examination. Recommend surgical consultation. Gastroenterology as well as General surgery were consulted. Patient states she does have a known history of depression, anxiety, PCOS and chronic back pain. Review of Systems Review of Systems: A 12 point review of systems was completed patient all pertinent positive and negative per HPI the remainder are unremarkable. PMFSH Past Medical History Medical History Anxiety Cystic teratoma Left oophorectomy Depression Marijuana use Obesity Surgical History Surgical History H/O ovarian cystectomy Family History Family History (Updated 01/24/22 @ 17:02 by Marian Pretty RN) Mother Carcinoma of colon Neely syndrome Social History Social History Smoking status: Current every day smoker Alcohol intake: current Drinks per week: 1 Substance use: current Substance use type: marijuana Other substance usage details: medical marijuana Gender identity (if verbalized by the patient): Female Sexual Orientation (if Verbalized by the Patient): Straight or Heterosexual Spiritual care concerns: No Meds Home Medications and Allergies Home Medications Medication Instructions Recorded Confirmed Type paroxetine HCl 30 mg tablet 30 mg PO HS 09/08/21 01/24/22 History trazodone 50 mg tablet 25 mg PO HS 09/08/21 01/24/22 History cholecalciferol (vitamin D3) 125 125 mcg PO HS 09/29/21 01/24/22 History mcg (5,000 unit) tablet (Vitamin D3) loratadine 10 mg tablet (Claritin) 10 mg PO DAILY 09/29/21 01/24/22 History ciprofloxacin HCl 500 mg tablet 500 mg PO Q12H #14 tabs 01/21/22 01/24/22 Rx (Cipro) ondansetron 4 mg disintegrating 4 mg PO Q8H PRN nausea and 01/21/22 01/24/22 Rx tablet vomiting #7 tabs Allergies Allergy/AdvReac Type Severity Reaction Status Date / Time No Known Allergies Allergy Verified 01/24/22 16:58 Vital Signs Vital Signs - 24 hr 01/24/22 13:18 01/24/22 13:16 01/24/22 13:36 Temperature 37.1 C Pulse Rate 56 L 59 L 62 Respiratory Rate 16 23 H 25 H Blood Pressure 140/80 Pulse Oximetry 100 100 100 Oxygen Delivery Room Air 01/24/22 13:45 01/24/22 14:06 01/24/22 14:15 Temperature Pulse Rate 56 L 53 L 48 L Respiratory Rate 17 13 15 Blood Pressure Pulse Oximetry 100 100 100 Oxygen Delivery 01/24/22 14:32 01/24/22 14:45 01/24/22 15:00 Temperature Pulse Rate 47 L 48 L 49 L Respiratory Rate 11 L 12 12 Blood Pressure Pulse Oximetry 100 100 Oxygen Delivery 01/24/22 1
[2022-01-25] MEDS: SODIUM CHLORIDE 0.9% IV 1,000 ML 125 ML IV CONT ×2 (01:11→08:57)
[2022-01-25] MEDS: PIPERACILLIN/TAZOBACTAM SOD 4.5 GM in SODIUM CHLORIDE 0.9% IV 100 ML 200 ML IVPB ×4 (03:06→20:38)
[2022-01-25 03:58] VITALS: BP 98/56; PULSE 62; RESP 18; TEMP 36.4; O2SAT 98
[2022-01-25] MEDS: HYDROmorphone HCL INJ (*CRX) 1 MG/ML SYR 0.5 MG IV PUSH ×3 (04:00→16:45)
[2022-01-25 05:58] LABS: Basophils Percent Auto 0.4 % (0.2-1.2); Eosinophils Absolute Auto 0.1 K/mm3 (0-0.3); Eosinophils Percent Auto 1.6 % (0-4.4); Hematocrit 36.2 % (37.0-47.0); Hemoglobin 11.6 g/dL (12.0-15.0); Immature Granulocyte Absolute 0.04 K/mm3 (0.00-0.031); Immature Granulocyte Percent A 0.5 % (0-0.5); Lymphocytes Absolute Auto 1.59 K/mm3 (0.9-3.2); Mean Corpuscular Volume 90.5 fl (80-100); Mean Platelet Volume 10.3 fl (7.4-10.4); Monocytes Absolute Auto 0.6 K/mm3 (0.1-0.6); Neutrophils Percent Auto 71.5 % (45.5-73.1); Platelet Count Result 241 k/mm3 (150-375); Red Cell Distribution Width 13.1 % (11.5-14.5); White Blood Count 8.4 K/mm3 (4.5-10.0)
[2022-01-25 06:05] LABS: Alanine Aminotransferase 331 U/L (6-35); Albumin Level 3.6 g/dL (3.5-5.1); Alkaline Phosphatase 397 U/L (38-126); Anion Gap 4 mmol/L (8-16); Aspartate Amino Transferase 561 U/L (14-36); Bilirubin,Total 4.2 mg/dL (0.2-1.3); Blood Urea Nitrogen 9 mg/dL (7-17); Calcium 8.3 mg/dL (8.4-10.2); Carbon Dioxide 28 mmol/L (22-30); Chloride 107 mmol/L (98-107); Estimated CRCL calculation 127 ml/min; Estimated Glomerular Filt Rate > 60; Glucose 91 mg/dL (65-110); Magnesium 2.1 mg/dL (1.6-2.3); Potassium 3.4 mmol/L (3.4-5.0); Sodium 139 mmol/L (137-145)
[2022-01-25] MEDS: PANTOPRAZOLE 40 MG TABLET PO ×2 (09:00→20:39)
--- NOTE | 2022-01-25 09:42 | WPDGIPROGNO ---
Subjective Date/time seen: 01/25/22 09:42 Patient feeling a little better today. Nausea without vomiting documented. Vital signs stable. Heart rate rhythm regular. Lungs CTAB. Abdomen was soft. Mild tenderness in the right upper quadrant. Impression: Elevated LFTs most likely secondary to choledocholithiasis. Cholangitis? White blood cell count now normal. Gallstones with acute cholecystitis. GERD. Family history of colon cancer and Neely syndrome in patient's mother. History of cystic teratoma the left ovary.? Status post left oophorectomy. Marijuana use. Recommendation: Will attempt referral to tertiary facility for ERCP. If this not available will have [facility] to complete on Wednesday. Continue antibiotics. Recheck laboratory studies. SCDs. Objective Data Vital Signs Vital Signs: Vital Signs - 24 hr 01/24/22 13:18 01/24/22 13:16 01/24/22 13:36 Temperature 37.1 C Pulse Rate 56 L 59 L 62 Respiratory Rate 16 23 H 25 H Blood Pressure 140/80 Pulse Oximetry 100 100 100 Oxygen Delivery Room Air 01/24/22 13:45 01/24/22 14:06 01/24/22 14:15 Temperature Pulse Rate 56 L 53 L 48 L Respiratory Rate 17 13 15 Blood Pressure Pulse Oximetry 100 100 100 Oxygen Delivery 01/24/22 14:32 01/24/22 14:45 01/24/22 15:00 Temperature Pulse Rate 47 L 48 L 49 L Respiratory Rate 11 L 12 12 Blood Pressure Pulse Oximetry 100 100 Oxygen Delivery 01/24/22 15:01 01/24/22 15:24 01/24/22 15:30 Temperature Pulse Rate 54 L 51 L 52 L Respiratory Rate 14 19 16 Blood Pressure 113/62 Pulse Oximetry 100 Oxygen Delivery 01/24/22 15:31 01/24/22 15:47 01/24/22 16:35 Temperature 36.8 C Pulse Rate 47 L 58 L 88 Respiratory Rate 12 12 16 Blood Pressure 105/55 L 99/41 L Pulse Oximetry 100 Oxygen Delivery 01/24/22 17:11 01/24/22 21:11 01/24/22 20:00 Temperature 36.4 C Pulse Rate 88 88 Respiratory Rate 16 16 16 Blood Pressure 101/47 L Pulse Oximetry 100 100 100 Oxygen Delivery Room Air Room Air 01/25/22 03:58 Temperature 36.4 C Pulse Rate 62 Respiratory Rate 18 Blood Pressure 98/56 L Pulse Oximetry 98 Oxygen Delivery Intake/Output Intake/Output: Intake & Output 01/22/22 01/23/22 01/24/22 01/25/22 23:59 23:59 23:59 23:59 Intake Total 1200 2100 Output Total 400 800 Balance 800 1300 Meds/Results Medications: Active Medications Generic Name Dose Route Start Last Admin Trade Name Freq PRN Reason Stop Dose Admin Hydromorphone HCl 0.5 mg 01/24/22 14:59 01/25/22 04:00 Hydromorphone Hcl Inj (*Crx) 1 Mg/Ml Syr IV PUSH 0.5 mg Q4H PRN Administration Pain Rated 7-10 Sodium Chloride 1,000 mls @ 125 mls/hr 01/24/22 15:00 01/25/22 08:57 Normal Saline Iv IV CONT 125 mls/hr .Q8H JORGE Administration Piperacillin Sod/Tazobactam 100 mls @ 200 mls/hr 01/24/22 21:00 01/25/22 08:59 Sod 4.5 gm/ Sodium Chloride IVPB 200 mls/hr Q6H JORGE Administration Ondansetron HCl 4 mg 01/24/22 14:59 01/24/22 18:16 Ondansetron Inj 4 Mg/2 Ml Vial IV PUSH 4 mg Q4H PRN Administration Nausea Pantoprazole Sodium 40 mg 01/24/22 21:00 01/25/22 09:00 Pantoprazole 40 Mg Tablet PO 40 mg Q12HR JORGE Administration Radiology Results: ITS Impressions Abdomen/Pelvis CT 01/24/22 16:20 IMPRESSION: 1. Thickened gallbladder wall with surrounding phlegmonous change and free fluid in the pelvis. Findings compatible with acute cholecystitis as discussed on prior CT and ultrasound examination. Recommend surgical consultation. Labs Labs: Laboratory Results - last 24 hr 01/24/22 01/24/22 01/24/22 13:14 13:14 13:14 WBC 13.5 H RBC 4.84 Hgb 14.0 Hct 43.2 MCV 89.3 MCH 28.9 MCHC 32.4 RDW 13.1 Plt Count 347 MPV 10.1 Immature Gran % (Auto) 0.6 H Neut % (Auto) 75.4 H Lymph % (Auto) 16.6 L [place] % (Auto) 5.4 Eos % (Auto) 1.6 Jean Paulo
[2022-01-25 10:47] LABS: Hematocrit 41.5 % (37.0-47.0); Hemoglobin 13.2 g/dL (12.0-15.0); Mean Corpuscular HGB Conc 31.8 g/dl (32-36); Mean Corpuscular Volume 91.2 fl (80-100); Mean Platelet Volume 10.1 fl (7.4-10.4); Platelet Count Result 260 k/mm3 (150-375); Red Blood Count 4.55 M/mm3 (4.2-5.4); Red Cell Distribution Width 13.2 % (11.5-14.5); White Blood Count 8.5 K/mm3 (4.5-10.0)
[2022-01-25 10:55] LABS: Alanine Aminotransferase 453 U/L (6-35); Albumin Level 4.5 g/dL (3.5-5.1); Alkaline Phosphatase 492 U/L (38-126); Anion Gap 14 mmol/L (8-16); Aspartate Amino Transferase 563 U/L (14-36); Bilirubin Direct 1.8 mg/dL (0-0.3); Bilirubin,Total 4.7 mg/dL (0.2-1.3); Blood Urea Nitrogen 10 mg/dL (7-17); Calcium 9.1 mg/dL (8.4-10.2); Carbon Dioxide 25 mmol/L (22-30); Chloride 103 mmol/L (98-107); Estimated CRCL calculation 127 ml/min; Estimated Glomerular Filt Rate > 60; Glucose 109 mg/dL (65-110); Potassium 3.2 mmol/L (3.4-5.0); Sodium 142 mmol/L (137-145)
--- NOTE | 2022-01-25 11:17 | PM.IMPN ---
Progress Note: A&P Assessment and Plan (1) Cholelithiasis with acute cholecystitis: Code(s): K80.00 - Calculus of gallbladder with acute cholecystitis without obstruction Status: Acute Assessment and Plan: Patient evaluated the ED on 01/21/22 to found to have acute cholecystitis with plans for outpatient cholecystectomy Appreciate general surgery Gastroenterology consultation Continue IV Zosyn Leukocytosis has resolved and patient is afebrile Given markedly elevated LFTs, there is concern for choledocholithiasis/cholangitis. Patient requires ERCP however cannot be completed at this facility until Wednesday. Transfer initiated in order for ERCP to be completed. Accepted for transfer to [facility] pending bed availability. On waitlist at [facility]. [facility] not currently accepting. Percutaneous cholecystostomy considered. Not able to be completed at this facility today as no interventional radiology available Clear liquid diet. Gentle IV hydration Analgesics and antiemetics available as needed (2) Choledocholithiasis: Code(s): K80.50 - Calculus of bile duct without cholangitis or cholecystitis without obstruction Status: Acute Assessment and Plan: Suspected. Please see above. (3) Transaminitis: Code(s): R74.01 - Elevation of levels of liver transaminase levels Status: Acute Assessment and Plan: Suspect secondary to choledocholithiasis. Total bilirubin increased to 4.2 today LFTs markedly elevated, increased from presentation Trend LFTs Subjective Date/time seen: 01/25/22 11:17 Interval history: Date of service: 01/25/2022 Aliza Salinas is a 21-year-old female (prefers to be called Espinoza and use they/them pronouns) who is seen in follow-up for cholecystitis with suspected choledocholithiasis/cholangitis. The patient is feeling well today, reporting minimal RUQ discomfort rated 1/10. Main complaint at this time is feeling thirsty. Denies N/V, fever, chills. No dizziness, lightheadedness or weakness. Reports having a migraine last night but this has resolved. Also reports feeling anxious yesterday but today no issues. Had been feeling constipated but resolved following suppository and reports regular bowel movement. No urinary symptoms. No SOB, cough, chest pain. Review of Systems Review of Systems: All systems reviewed & are unremarkable except as noted in HPI and below Exam Narrative: General: Well-nourished, well-appearing 21-year-old female, sitting up in bed, comfortable, NARD Neuro: awake, alert and oriented x4, speech clear, no focal neuro deficits noted HEENMT: normocephalic, atraumatic, EOMI, sclerae anicteric, moist oral mucosa Respiratory: clear to auscultation bilaterally, nonlabored breathing Cardio: regular rate, regular rhythm with S1-S2 Abdomen: nondistended, normoactive bowel sounds, soft, mildly tender to palpation of RUQ no rigidity or guarding Extremities: no edema, erythema, or tenderness to palpation, DP pulses 2+ bilaterally Skin: no jaundice, no rashes or lesions, warm and dry Psych: appropriate mood and affect, judgment and insight intact Objective Data Vital Signs Vital Signs: Vital Signs - 24 hr 01/24/22 13:18 01/24/22 13:16 01/24/22 13:36 Temperature 98.7 F Pulse Rate 56 L 59 L 62 Respiratory Rate 16 23 H 25 H Blood Pressure 140/80 Pulse Oximetry 100 100 100 Oxygen Delivery Room Air 01/24/22 13:45 01/24/22 14:06 01/24/22 14:15 Temperature Pulse Rate 56 L 53 L 48 L Respiratory Rate 17 13 15 Blood Pressure Pulse Oximetry 100 100 100 Oxygen Delivery 01/24/22 14:32 01/24/22 14:45 01/24/22 15:00 Temperature Pulse Rate 47 L 48 L 49 L Respiratory Rate 11 L 12 12 Blood Pressure Pulse Oximetry 100 100 Oxygen Delivery 01/24/22 15:01 01/24/22 15:24 01/24/22 15:30 Temperature Pulse Rate 54 L 51 L 52 L Respiratory Rate 14 19 16 Blood Pressure 113/62 Pulse Oximetry 100 Oxygen De
[2022-01-25 14:00] VITALS: BP 95/50; PULSE 62; RESP 14; TEMP 35.9; O2SAT 100
[2022-01-25] MEDS: LORATADINE 10 MG TABLET PO (14:15)
[2022-01-25] MEDS: POTASSIUM CHLORIDE 20 MEQ TABLET PO (14:15)
--- NOTE | 2022-01-25 14:43 | PM.CNGS ---
Assessment and Plan Assessment and plan (1) Cholelithiasis with acute cholecystitis: Code(s): K80.00 - Calculus of gallbladder with acute cholecystitis without obstruction Status: Acute Assessment and Plan: patient has evidence of acute calculous cholecystitis. Her symptoms have now been going on for 5 days which make proceeding with laparoscopic cholecystectomy somewhat higher risk. I discussed with patient that there is going to be high risk of significant inflammatory changes around the gallbladder which could lead to surrounding organ injuries or risk of conversion to an open procedure. Her liver enzymes have continued to rise since admission which raises concern for possible choledocholithiasis. She would benefit from either MRCP for further imaging or proceeding with ERCP by GI. Both of these appear to be unobtainable today or tomorrow due to the weekend and holiday. Arrangements are being made for transfer to tertiary care facility where this might be able to be performed. Discussed possibility of percutaneous cholecystostomy if patient is showing worsening signs or sepsis. Will continue to follow along with patient while she is here. (2) Transaminitis: Code(s): R74.01 - Elevation of levels of liver transaminase levels Status: Acute (3) BMI 34.0-34.9,adult: Code(s): Z68.34 - Body mass index [BMI] 34.0-34.9, adult Status: Acute History of Present Illness Consult details Consult date: 01/25/22 Reason for consult: other (Acute cholecystitis) Requesting physician: Marciano Scott MD Narrative: this is a 21-year-old woman who I am asked to see for acute cholecystitis. She has been experiencing abdominal pain since 01/20/2022. She states that she also had another symptom similar to this about 1 or 2 months ago but this resolved on its own. On 01/20 she had eaten some chicken wings and began experiencing right upper quadrant abdominal pain. Symptoms were not improving, therefore she went to the emergency department on 01/21. She was noted to have a significantly elevated white blood count at 19,[address] and ultrasound showed evidence of acute cholecystitis with cholelithiasis. Her pain was improving in the emergency department and she was then discharged on Cipro and instructed to follow-up with the on-call Surgeon at that time. She was continued to have intermittent pain over the next 2 days, but then pain became severe and constant yesterday. She then presented back to the emergency Department. She was noted to have a slightly elevated white blood count still at 13,000, but her liver enzymes were significantly elevated including a total bilirubin of 2.5. A repeat CT showed continued signs of cholecystitis with a thickened and edematous gallbladder wall. Patient has noted dark urine since being admitted, but was not experiencing dark urine or jaundice prior to this. Her pain is much more tolerable today. She denies any fevers, nausea, or vomiting. Review of Systems Review of Systems: All systems reviewed & are unremarkable except as noted in HPI and below Constitutional: Constitutional: Denies chills and Denies fever(s) Eyes: Eyes: Denies change in vision ENT: Denies hearing loss, Denies neck pain and Denies sore throat Cardiovascular: Cardiovascular: Denies chest pain and Denies dyspnea Respiratory: Respiratory: Denies cough, Denies dyspnea and Denies wheezing Gastrointestinal: Gastrointestinal: Reports as per HPI Genitourinary: Genitourinary: Denies hematuria and Denies dysuria Musculoskeletal: Musculoskeletal: Denies arthralgias, Denies joint swelling and Denies neck pain Allergic/Immunologic: Allergic/Immunologic: Denies wheezing [facility] Past Medical History Medical History Anxiety Cystic teratoma Left oophorectomy Depression Marijuana use Obesity Surgical History Surgical History (Reviewed 01/24/22 @ 14:5
[2022-01-25 20:00] VITALS: PULSE 55; RESP 16; O2SAT 100
[2022-01-25 20:06] VITALS: BP 113/61; PULSE 55; RESP 16; TEMP 36.3; O2SAT 100
[2022-01-25] MEDS: SODIUM CHLORIDE 0.9% IV 1,000 ML 75 ML IV CONT (20:07)
[2022-01-25] MEDS: traZODone HCL 25 MG TABLET PO (20:38)
[2022-01-25] MEDS: PARoxetine 10 MG TABLET 30 MG PO (20:38)
[2022-01-25] MEDS: CHOLECALCIFEROL 1,000 UNITS TABLET 5000 UNITS PO (20:39)
[2022-01-26] MEDS: PIPERACILLIN/TAZOBACTAM SOD 4.5 GM in SODIUM CHLORIDE 0.9% IV 100 ML 200 ML IVPB ×4 (02:53→20:43)
[2022-01-26 04:12] VITALS: BP 94/48; PULSE 57; RESP 16; TEMP 36.4; O2SAT 98
[2022-01-26 05:23] LABS: Hematocrit 35.2 % (37.0-47.0); Hemoglobin 11.2 g/dL (12.0-15.0); Mean Corpuscular HGB Conc 31.8 g/dl (32-36); Mean Corpuscular Volume 91.2 fl (80-100); Mean Platelet Volume 9.8 fl (7.4-10.4); Platelet Count Result 207 k/mm3 (150-375); Red Blood Count 3.86 M/mm3 (4.2-5.4); Red Cell Distribution Width 13.2 % (11.5-14.5)
[2022-01-26 05:31] LABS: Alanine Aminotransferase 248 U/L (6-35); Albumin Level 3.6 g/dL (3.5-5.1); Alkaline Phosphatase 345 U/L (38-126); Anion Gap 6 mmol/L (8-16); Aspartate Amino Transferase 166 U/L (14-36); Bilirubin,Total 1.6 mg/dL (0.2-1.3); Blood Urea Nitrogen 6 mg/dL (7-17); Calcium 8.4 mg/dL (8.4-10.2); Carbon Dioxide 24 mmol/L (22-30); Chloride 107 mmol/L (98-107); Estimated CRCL calculation 127 ml/min; Estimated Glomerular Filt Rate > 60; Glucose 83 mg/dL (65-110); Potassium 3.8 mmol/L (3.4-5.0); Sodium 137 mmol/L (137-145)
[2022-01-26 09:36] VITALS: O2SAT 98
--- NOTE | 2022-01-26 09:46 | WPDGIPROGNO ---
Subjective Date/time seen: 01/26/22 09:46 Patient feeling much better today. Much less abdominal pain. Tolerating clear liquids. LFTs show marked improvement. White blood cell count is normal. Vital signs stable.?Afebrile. Heart rate rhythm regular.? Lungs CTAB.? Abdomen was soft.? Mild tenderness in the right upper quadrant. Impression: Elevated LFTs most likely secondary to choledocholithiasis.? Cholangitis?? White blood cell count now normal. With improving LFTs. Gallstones with acute cholecystitis. GERD. Family history of colon cancer and Neely syndrome in patient's mother. History of cystic teratoma the left ovary.? Status post left oophorectomy. Marijuana use. Recommendation: MRCP. May be able to cancel transfer since LFTs were improved dramatically and patient has clinically improved. ERCP pending results of MRCP. Further recommendations per General surgery. Objective Data Vital Signs Vital Signs: Vital Signs - 24 hr 01/25/22 14:00 01/25/22 20:06 01/25/22 20:00 Temperature 35.9 C L 36.3 C L Pulse Rate 62 55 L 55 L Respiratory Rate 14 16 16 Blood Pressure 95/50 L 113/61 Pulse Oximetry 100 100 100 Oxygen Delivery Room Air 01/26/22 04:12 01/26/22 09:36 Temperature 36.4 C L Pulse Rate 57 L Respiratory Rate 16 Blood Pressure 94/48 L Pulse Oximetry 98 98 Oxygen Delivery Room Air Intake/Output Intake/Output: Intake & Output 01/23/22 01/24/22 01/25/22 01/26/22 23:59 23:59 23:59 23:59 Intake Total 1200 4800 1095 Output Total 400 3100 800 Balance 800 1700 295 Meds/Results Medications: Active Medications Generic Name Dose Route Start Last Admin Trade Name Freq PRN Reason Stop Dose Admin Hydromorphone HCl 0.5 mg 01/24/22 14:59 01/25/22 16:45 Hydromorphone Hcl Inj (*Crx) 1 Mg/Ml Syr IV PUSH 0.5 mg Q4H PRN Administration Pain Rated 7-10 Sodium Chloride 1,000 mls @ 75 mls/hr 01/24/22 15:00 01/25/22 20:07 Normal Saline Iv IV CONT 75 mls/hr .[id number] JORGE Administration Piperacillin Sod/Tazobactam 100 mls @ 200 mls/hr 01/24/22 21:00 01/26/22 08:51 Sod 4.5 gm/ Sodium Chloride IVPB 200 mls/hr Q6H JORGE Administration Loratadine 10 mg 01/26/22 09:00 Loratadine 10 Mg Tablet PO DAILY JORGE Ondansetron HCl 4 mg 01/24/22 14:59 01/24/22 18:16 Ondansetron Inj 4 Mg/2 Ml Vial IV PUSH 4 mg Q4H PRN Administration Nausea Pantoprazole Sodium 40 mg 01/24/22 21:00 01/25/22 20:39 Pantoprazole 40 Mg Tablet PO 40 mg Q12HR JORGE Administration Paroxetine HCl 30 mg 01/25/22 21:00 01/25/22 20:38 Paroxetine 10 Mg Tablet PO 30 mg HS JORGE Administration Trazodone HCl 25 mg 01/25/22 21:00 01/25/22 20:38 Trazodone Hcl 25 Mg Tablet PO 25 mg HS JORGE Administration Vitamin D 5,000 units 01/25/22 21:00 01/25/22 20:39 Cholecalciferol 1,000 Units Tablet PO 5,000 units HS JORGE Administration Radiology Results: ITS Impressions Abdomen/Pelvis CT 01/24/22 16:20 IMPRESSION: 1. Thickened gallbladder wall with surrounding phlegmonous change and free fluid in the pelvis. Findings compatible with acute cholecystitis as discussed on prior CT and ultrasound examination. Recommend surgical consultation. Labs Labs: Laboratory Results - last 24 hr 01/25/22 01/25/22 01/26/22 10:38 10:38 05:12 WBC 8.5 7.0 RBC 4.55 3.86 L Hgb 13.2 11.2 L Hct 41.5 35.2 L MCV 91.2 91.2 MCH 29.0 29.0 MCHC 31.8 L 31.8 L RDW 13.2 13.2 Plt Count 260 207 MPV 10.1 9.8 Sodium 142 Potassium 3.2 L Chloride 103 Carbon Dioxide 25 Anion Gap 14 BUN 10 Creatinine 0.60 L Estim Creat Clear Calc 127 Estimated GFR > 60 Glucose 109 Calcium 9.1 Total Bilirubin 4.7 H Direct Bilirubin 1.8 H AST 563 H ALT 453 H Alkaline Phosphatase 492 H Total Protein 9.0 H Albumin 4.5 01/26/22 05:12 WBC RBC Hgb Hct M
--- NOTE | 2022-01-26 10:53 | PM.PNGS ---
Progress Note: A&P Assessment and Plan (1) Cholelithiasis with acute cholecystitis: Code(s): K80.00 - Calculus of gallbladder with acute cholecystitis without obstruction Status: Acute Assessment and Plan: symptoms significantly improved, likely passed a stone. Liver enzymes improved as well. Will plan to get HIDA scan tomorrow morning. If cystic duct obstructed, she might need percutaneous cholecystostomy tube and interval laparoscopic cholecystectomy 6-8 weeks later. If cystic duct patent, could continue to treat conservatively with low-fat diet for the next several weeks and then proceed with laparoscopic cholecystectomy once inflammatory process has had time to resolve. (2) Transaminitis: Code(s): R74.01 - Elevation of levels of liver transaminase levels Status: Acute (3) BMI 34.0-34.9,adult: Code(s): Z68.34 - Body mass index [BMI] 34.0-34.9, adult Status: Acute Subjective Subjective Date/Time Seen: 01/26/22 10:53 Interval history: Doing much better today. Pain improved. Urine is now clear. No nausea or vomiting. No fevers. Exam GI: Inspection: non-distended GI Palp: Yes Soft to palpation, Yes Tenderness to palpation present (GI) ( Minimal right upper quadrant) and No Guarding due to palpation present (GI) Percussion: Yes normal to percussion Auscultation: normal bowel sounds Objective Data Vital Signs Vital Signs: Vital Signs - 24 hr 01/25/22 14:00 01/25/22 20:06 01/25/22 20:00 Temperature 35.9 C L 36.3 C L Pulse Rate 62 55 L 55 L Respiratory Rate 14 16 16 Blood Pressure 95/50 L 113/61 Pulse Oximetry 100 100 100 Oxygen Delivery Room Air 01/26/22 04:12 01/26/22 09:36 Temperature 36.4 C L Pulse Rate 57 L Respiratory Rate 16 Blood Pressure 94/48 L Pulse Oximetry 98 98 Oxygen Delivery Room Air Intake/Output Intake/Output: Intake & Output 01/23/22 01/24/22 01/25/22 01/26/22 23:59 23:59 23:59 23:59 Intake Total 1200 4800 1095 Output Total 400 3100 1700 Balance 800 1700 -605 Meds/Results Medications: Active Medications Generic Name Dose Route Start Last Admin Trade Name Freq PRN Reason Stop Dose Admin Hydromorphone HCl 0.5 mg 01/24/22 14:59 01/25/22 16:45 Hydromorphone Hcl Inj (*Crx) 1 Mg/Ml Syr IV PUSH 0.5 mg Q4H PRN Administration Pain Rated 7-10 Sodium Chloride 1,000 mls @ 75 mls/hr 01/24/22 15:00 01/25/22 20:07 Normal Saline Iv IV CONT 75 mls/hr .[id number] JORGE Administration Piperacillin Sod/Tazobactam 100 mls @ 200 mls/hr 01/24/22 21:00 01/26/22 08:51 Sod 4.5 gm/ Sodium Chloride IVPB 200 mls/hr Q6H JORGE Administration Loratadine 10 mg 01/26/22 09:00 Loratadine 10 Mg Tablet PO DAILY JORGE Ondansetron HCl 4 mg 01/24/22 14:59 01/24/22 18:16 Ondansetron Inj 4 Mg/2 Ml Vial IV PUSH 4 mg Q4H PRN Administration Nausea Pantoprazole Sodium 40 mg 01/24/22 21:00 01/25/22 20:39 Pantoprazole 40 Mg Tablet PO 40 mg Q12HR JORGE Administration Paroxetine HCl 30 mg 01/25/22 21:00 01/25/22 20:38 Paroxetine 10 Mg Tablet PO 30 mg HS JORGE Administration Trazodone HCl 25 mg 01/25/22 21:00 01/25/22 20:38 Trazodone Hcl 25 Mg Tablet PO 25 mg HS JORGE Administration Vitamin D 5,000 units 01/25/22 21:00 01/25/22 20:39 Cholecalciferol 1,000 Units Tablet PO 5,000 units HS JORGE Administration Radiology Results: ITS Impressions Abdomen/Pelvis CT 01/24/22 16:20 IMPRESSION: 1. Thickened gallbladder wall with surrounding phlegmonous change and free fluid in the pelvis. Findings compatible with acute cholecystitis as discussed on prior CT and ultrasound examination. Recommend surgical consultation. Labs Labs: Laboratory Results - last 24 hr 01/25/22 01/26/22 01/26/22 10:38 05:12 05:12 WBC 7.0 RBC 3.86 L Hgb 11.2 L Hct 35.2 L MCV 91.2 MCH 29.0 MCHC 31.8 L RDW 13.2 Plt Count 207 MPV 9.8
[2022-01-26] MEDS: PANTOPRAZOLE 40 MG TABLET PO ×2 (12:12→20:38)
[2022-01-26] MEDS: SODIUM CHLORIDE 0.9% IV 1,000 ML 75 ML IV CONT (12:13)
[2022-01-26] MEDS: LORATADINE 10 MG TABLET PO (12:13)
--- NOTE | 2022-01-26 12:40 | PM.IMPN ---
Progress Note: A&P Assessment and Plan (1) Cholelithiasis with acute cholecystitis: Code(s): K80.00 - Calculus of gallbladder with acute cholecystitis without obstruction Status: Acute Assessment and Plan: Patient evaluated the ED on 01/21/22 to found to have acute cholecystitis with plans for outpatient cholecystectomy Appreciate general surgery and gastroenterology consultation Continue IV Zosyn Leukocytosis has resolved and patient is afebrile Given markedly elevated LFTs, there is concern for choledocholithiasis/cholangitis. Patient requires ERCP however cannot be completed at this facility today due to holiday. MRCP pending today. Consider ERCP based on results HIDA scan tomorrow morning. Percutaneous cholecystostomy will be considered if cystic duct found to be obstructed 01/25 transfer initiated to [facility] for ERCP. Today cancelled transfer given patients clinical improvement and ability to be managed appropriately at this facility Clear liquid diet. Gentle IV hydration Analgesics and antiemetics available as needed (2) Choledocholithiasis: Code(s): K80.50 - Calculus of bile duct without cholangitis or cholecystitis without obstruction Status: Acute Assessment and Plan: Suspected. Please see above. (3) Transaminitis: Code(s): R74.01 - Elevation of levels of liver transaminase levels Status: Acute Assessment and Plan: Suspect secondary to choledocholithiasis. Marked improvement today Trend LFTs Subjective Date/time seen: 01/26/22 12:40 Interval history: Date of service: 01/26/2022 Aliza Salinas is a 21-year-old female (prefers to be called Espinoza and use they/them pronouns) who is seen in follow-up for cholecystitis with suspected choledocholithiasis. The patient is feeling very well today and has no complaints. No abdominal pain, nausea, vomiting. Tolerating clear liquids. 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 Denies diarrhea. No SOB, cough, chest pain, or palpitations. Review of Systems Review of Systems: All systems reviewed & are unremarkable except as noted in HPI and below Exam Narrative: General: Well-nourished, well-appearing 21-year-old female, sitting up in bed, comfortable, NARD Neuro: awake, alert and oriented x4, speech clear, no focal neuro deficits noted HEENMT: normocephalic, atraumatic, EOMI, sclerae anicteric, moist oral mucosa Respiratory: clear to auscultation bilaterally, nonlabored breathing Cardio: regular rate, regular rhythm with S1-S2 Abdomen: nondistended, normoactive bowel sounds, soft, nontender to palpation, no rigidity or guarding Extremities: no edema, erythema, or tenderness to palpation, DP pulses 2+ bilaterally Skin: no jaundice, no rashes or lesions, warm and dry Psych: appropriate mood and affect, judgment and insight intact Objective Data Vital Signs Vital Signs: Vital Signs - 24 hr 01/25/22 14:00 01/25/22 20:06 01/25/22 20:00 Temperature 96.6 F L 97.4 F L Pulse Rate 62 55 L 55 L Respiratory Rate 14 16 16 Blood Pressure 95/50 L 113/61 Pulse Oximetry 100 100 100 Oxygen Delivery Room Air 01/26/22 04:12 01/26/22 09:36 Temperature 97.5 F L Pulse Rate 57 L Respiratory Rate 16 Blood Pressure 94/48 L Pulse Oximetry 98 98 Oxygen Delivery Room Air Intake/Output Intake/Output: Intake & Output 01/23/22 01/24/22 01/25/22 01/26/22 23:59 23:59 23:59 23:59 Intake Total 1200 4800 2095 Output Total 400 3100 1700 Balance 800 1700 395 Meds/Results Medications: Active Medications Generic Name Dose Route Start Last Admin Trade Name Freq PRN Reason Stop Dose Admin Hydromorphone HCl 0.5 mg 01/24/22 14:59 01/25/22 16:45 Hydromorphone Hcl Inj (*Crx) 1 Mg/Ml Syr IV PUSH 0.5 mg Q4H PRN Administration Pain Rated 7-10 Sodium Chloride 1,000 mls @ 75 mls/hr 01/24/22 15:00 01/26/22 12:13 Normal Saline Iv IV CONT
[2022-01-26 15:00] VITALS: BP 91/46; PULSE 82; RESP 16; TEMP 35.8; O2SAT 100
[2022-01-26] MEDS: HYDROmorphone HCL INJ (*CRX) 1 MG/ML SYR 0.5 MG IV PUSH (17:10)
[2022-01-26] MEDS: traZODone HCL 25 MG TABLET PO (20:37)
[2022-01-26] MEDS: PARoxetine 10 MG TABLET 30 MG PO (20:38)
[2022-01-26] MEDS: CHOLECALCIFEROL 1,000 UNITS TABLET 5000 UNITS PO (20:38)
[2022-01-26 22:00] VITALS: BP 113/59; PULSE 74; RESP 16; TEMP 36.8; O2SAT 98
[2022-01-27] MEDS: SODIUM CHLORIDE 0.9% IV 1,000 ML 75 ML IV CONT ×2 (02:20→14:01)
[2022-01-27] MEDS: PIPERACILLIN/TAZOBACTAM SOD 4.5 GM in SODIUM CHLORIDE 0.9% IV 100 ML 200 ML IVPB ×2 (02:20→13:58)
[2022-01-27 06:00] VITALS: BP 140/90; PULSE 102; RESP 16; TEMP 36.7; O2SAT 100
[2022-01-27 10:35] LABS: Hematocrit 37.7 % (37.0-47.0); Mean Corpuscular HGB Conc 31.8 g/dl (32-36); Mean Corpuscular Hemoglobin 29.1 pg (26-34); Mean Corpuscular Volume 91.3 fl (80-100); Mean Platelet Volume 10.3 fl (7.4-10.4); Platelet Count Result 276 k/mm3 (150-375); Red Blood Count 4.13 M/mm3 (4.2-5.4); Red Cell Distribution Width 13.2 % (11.5-14.5); White Blood Count 6.8 K/mm3 (4.5-10.0)
[2022-01-27 10:49] LABS: Alanine Aminotransferase 180 U/L (6-35); Albumin Level 3.9 g/dL (3.5-5.1); Alkaline Phosphatase 294 U/L (38-126); Anion Gap 8 mmol/L (8-16); Aspartate Amino Transferase 64 U/L (14-36); Bilirubin,Total 0.9 mg/dL (0.2-1.3); Blood Urea Nitrogen 5 mg/dL (7-17); Calcium 8.8 mg/dL (8.4-10.2); Carbon Dioxide 24 mmol/L (22-30); Chloride 106 mmol/L (98-107); Estimated CRCL calculation 127 ml/min; Estimated Glomerular Filt Rate > 60; Glucose 81 mg/dL (65-110); Potassium 3.7 mmol/L (3.4-5.0); Sodium 138 mmol/L (137-145)
[2022-01-27] MEDS: MORPHINE SULFATE (*CRX) 2 MG/ML INJ IV PUSH (11:33)
[2022-01-27] MEDS: ONDANSETRON INJ 4 MG/2 ML VIAL IV PUSH (11:41)
[2022-01-27] MEDS: PANTOPRAZOLE 40 MG TABLET PO (13:00)
[2022-01-27] MEDS: LORATADINE 10 MG TABLET PO (13:00)
--- NOTE | 2022-01-27 13:22 | PM.PNGS ---
Progress Note: A&P Assessment and Plan (1) Cholelithiasis with acute cholecystitis: Code(s): K80.00 - Calculus of gallbladder with acute cholecystitis without obstruction Status: Acute Assessment and Plan: HIDA showed acute cholecystitis. Symptoms significantly improved and the patient is no longer having any abdominal pain. Her abdominal exam is benign. WBC normal and LFTs continue to trend down. Will try advancing her to a low fat diet. If she is able to tolerate this, then she could be discharged on oral antibiotics. She will need to follow-up in our office to discuss and schedule surgery as an outpatient once the inflammation has improved. If she begins having abdominal pain, then she may require percutaneous cholecystostomy tube placement. (2) Transaminitis: Code(s): R74.01 - Elevation of levels of liver transaminase levels Status: Acute Assessment and Plan: MRCP showed acute cholecystitis, no choledocholithiasis. LFTs trending down. She likely passed a stone. Will plan interval cholecystectomy as an outpatient. (3) BMI 34.0-34.9,adult: Code(s): Z68.34 - Body mass index [BMI] 34.0-34.9, adult Status: Acute Additional Plan I have discussed the patient's case and plan of care with Dr. Quinones. Subjective Subjective Date/Time Seen: 01/27/22 13:22 Patient reports: no new complaints, feels better, flatus, bowel movement (x1 today) and afebrile Interval history: Patient seen and examined. She reports feeling well today. Denies any abdominal pain today. She tolerated clear liquids well yesterday. She reports having some nausea after receiving the IV Morphine in the HIDA scan but this has resolved. No other complaints at this time. Review of Systems Review of Systems: All systems reviewed & are unremarkable except as noted in HPI and below Constitutional: Constitutional: Denies fever(s) Exam Const: General: alert; No acute distress Orientation/consciousness: patient oriented x3 GI: Inspection: normal to inspection and non-distended GI Palp: Yes Soft to palpation, No Tenderness to palpation present (GI), No Guarding due to palpation present (GI) and No Rebound tenderness present Auscultation: normal bowel sounds Objective Data Vital Signs Vital Signs: Vital Signs - 24 hr 01/26/22 15:00 01/26/22 22:00 01/27/22 06:00 Temperature 96.5 F L 98.3 F 98.0 F Pulse Rate 82 74 102 H Respiratory Rate 16 16 16 Blood Pressure 91/46 L 113/59 L 140/90 Pulse Oximetry 100 98 100 Oxygen Delivery 01/27/22 07:52 Temperature Pulse Rate Respiratory Rate Blood Pressure Pulse Oximetry Oxygen Delivery Room Air Intake/Output Intake/Output: Intake & Output 01/24/22 01/25/22 01/26/22 01/27/22 23:59 23:59 23:59 23:59 Intake Total 1200 4800 3835 1500 Output Total 400 3100 3500 700 Balance 800 1700 335 800 Meds/Results Medications: Active Medications Generic Name Dose Route Start Last Admin Trade Name Freq PRN Reason Stop Dose Admin Hydromorphone HCl 0.5 mg 01/24/22 14:59 01/26/22 17:10 Hydromorphone Hcl Inj (*Crx) 1 Mg/Ml Syr IV PUSH 0.5 mg Q4H PRN Administration Pain Rated 7-10 Sodium Chloride 1,000 mls @ 75 mls/hr 01/24/22 15:00 01/27/22 02:20 Normal Saline Iv IV CONT 75 mls/hr .[id number] JORGE Administration Piperacillin Sod/Tazobactam 100 mls @ 200 mls/hr 01/24/22 21:00 01/27/22 13:07 Sod 4.5 gm/ Sodium Chloride IVPB Not Given Q6H JORGE Loratadine 10 mg 01/26/22 09:00 01/27/22 13:00 Loratadine 10 Mg Tablet PO 10 mg DAILY JORGE Administration Ondansetron HCl 4 mg 01/24/22 14:59 01/27/22 11:41 Ondansetron Inj 4 Mg/2 Ml Vial IV PUSH 4 mg Q4H PRN Administration Nausea Pantoprazole Sodium 40 mg 01/24/22 21:00 01/27/22 13:00 Pantoprazole 40 Mg Tablet PO 40 mg Q12HR JORGE Administration Paroxetine HCl 30 mg 01/25/22 21:00 01/26/22 20:38 Paroxetine 10 Mg Tablet PO 30 mg HS
[2022-01-27 14:00] VITALS: BP 129/67; PULSE 80; RESP 18; TEMP 35.8; O2SAT 100
--- NOTE | 2022-01-27 14:04 | WPDGIPROGNO ---
Progress Note: A&P Assessment and Plan (1) Cholecystitis: Code(s): K81.9 - Cholecystitis, unspecified Status: Acute Assessment and Plan: Patient with apparent acute cholecystitis. Admitted with elevated LFTs that have diminished. MRCP today reveals normal size common bile duct with no evidence of stones. MRCP and HIDA scan both suggest acute cholecystitis. Continued follow-up with surgery at this point with. I would defer ERCP unless necessary after cholecystectomy. (2) Cholelithiasis with acute cholecystitis: Code(s): K80.00 - Calculus of gallbladder with acute cholecystitis without obstruction Status: Acute Assessment and Plan: Surgery following patient for what appears to be acute cholecystitis. It is possible that she passed a common bile duct stone but with MRCP results in markedly improved LFTs no need for ERCP at this time. Surgery follow-up suggested. (3) Transaminitis: Code(s): R74.01 - Elevation of levels of liver transaminase levels Status: Acute Subjective Date/time seen: 01/27/22 14:04 Patient alert comfortable this morning. offers no specific complaints. States abdominal pain is resolved. Review of Systems Review of Systems: Review of systems noncontributory. Exam Narrative: Physical exam reveals patient be alert. Vital signs stable. HEENT exam is unremarkable. Patient is anicteric. Lungs are clear. Heart without murmur. Abdomen bowel sounds present soft nontender present. Objective Data Vital Signs Vital Signs: Vital Signs - 24 hr 01/26/22 15:00 01/26/22 22:00 01/27/22 06:00 Temperature 96.5 F L 98.3 F 98.0 F Pulse Rate 82 74 102 H Respiratory Rate 16 16 16 Blood Pressure 91/46 L 113/59 L 140/90 Pulse Oximetry 100 98 100 Oxygen Delivery 01/27/22 07:52 Temperature Pulse Rate Respiratory Rate Blood Pressure Pulse Oximetry Oxygen Delivery Room Air Intake/Output Intake/Output: Intake & Output 01/24/22 01/25/22 01/26/22 01/27/22 23:59 23:59 23:59 23:59 Intake Total 1200 4800 3835 2500 Output Total 400 3100 3500 700 Balance 800 1662 007 0274 Meds/Results Medications: Active Medications Generic Name Dose Route Start Last Admin Trade Name Freq PRN Reason Stop Dose Admin Hydromorphone HCl 0.5 mg 01/24/22 14:59 01/26/22 17:10 Hydromorphone Hcl Inj (*Crx) 1 Mg/Ml Syr IV PUSH 0.5 mg Q4H PRN Administration Pain Rated 7-10 Sodium Chloride 1,000 mls @ 75 mls/hr 01/24/22 15:00 01/27/22 14:01 Normal Saline Iv IV CONT 75 mls/hr .[id number] JORGE Administration Piperacillin Sod/Tazobactam 100 mls @ 200 mls/hr 01/24/22 21:00 01/27/22 13:58 Sod 4.5 gm/ Sodium Chloride IVPB 200 mls/hr Q6H JORGE Administration Loratadine 10 mg 01/26/22 09:00 01/27/22 13:00 Loratadine 10 Mg Tablet PO 10 mg DAILY JORGE Administration Ondansetron HCl 4 mg 01/24/22 14:59 01/27/22 11:41 Ondansetron Inj 4 Mg/2 Ml Vial IV PUSH 4 mg Q4H PRN Administration Nausea Pantoprazole Sodium 40 mg 01/24/22 21:00 01/27/22 13:00 Pantoprazole 40 Mg Tablet PO 40 mg Q12HR JORGE Administration Paroxetine HCl 30 mg 01/25/22 21:00 01/26/22 20:38 Paroxetine 10 Mg Tablet PO 30 mg HS JORGE Administration Trazodone HCl 25 mg 01/25/22 21:00 01/26/22 20:37 Trazodone Hcl 25 Mg Tablet PO 25 mg HS JORGE Administration Vitamin D 5,000 units 01/25/22 21:00 01/26/22 20:38 Cholecalciferol 1,000 Units Tablet PO 5,000 units HS JORGE Administration Radiology Results: ITS Impressions Abdomen/Pelvis CT 01/24/22 16:20 IMPRESSION: 1. Thickened gallbladder wall with surrounding phlegmonous change and free fluid in the pelvis. Findings compatible with acute cholecystitis as discussed on prior CT and ultrasound examination. Recommend surgical consultation. MRCP 01/27/22 09:19 IMPRESSION: 1. Acute cholecystitis. 2. Normal common duct. No choledocholithiasis. 3. 2
--- NOTE | 2022-01-27 15:33 | PM.DS ---
DS: Admitting Diagnosis Discharge Date 01/27/2022 Admitting Diagnosis Acute cholecystitis DS: Discharge Diagnosis Discharge Diagnosis (1) Cholelithiasis with acute cholecystitis: Code(s): K80.00 - Calculus of gallbladder with acute cholecystitis without obstruction Status: Acute Assessment and Plan: Patient evaluated the ED on 01/21/22 and found to have acute cholecystitis with plans for outpatient cholecystectomy. Return to ED on 01/24/2022 with worsened RUQ pain. Appreciate general surgery and gastroenterology consultation Received IV Zosyn during admission. Will continue PO Cipro outpatient Leukocytosis resolved and patient remained afebrile Pt had clinical improvement and able to slowly advance diet and tolerate low fat diet which will be continued HIDA scan revealed acute cholecystitis She will follow up with Dr. Ngo on 02/05/22 to plan elective cholecystectomy (2) Choledocholithiasis: Code(s): K80.50 - Calculus of bile duct without cholangitis or cholecystitis without obstruction Status: Acute Assessment and Plan: Suspected. LFTs markedly elevated on presentation with increased RUQ pain There was concern for choledocholithiasis/cholangitis. ERCP recommended however this was not able to be completed during the patient's admission over the weekend/holiday. Transfer was arranged to outside facility in order to complete ERCP however no bed was made available and patient had clinical improvement, therefore ERCP was deferred and transfer was canceled. MRCP showed normal common bile duct without evidence of choledocholithiasis LFTs markedly improved Outpatient general surgery follow-up (3) Transaminitis: Code(s): R74.01 - Elevation of levels of liver transaminase levels Status: Acute Assessment and Plan: Suspect secondary to choledocholithiasis. LFTs markedly improved during admission DS: Summary Hospital Course Hospital Course: Date of admission: 01/24/2022 Date of discharge: 01/27/2022 Aliza Salinas is a 21-year-old female (prefers to be called Espinoza and use they/them pronouns)?with a history of anxiety, depression, and cystic teratoma s/p ovarian cystectomy who presented to the emergency department on 01/24/2022 with complaints of right upper quadrant pain. Patient had previously been seen in the ED 3 days later with similar symptoms. Diagnosed with acute cholecystitis and started on ciprofloxacin with plans for outpatient general surgery follow-up. However, pain became more severe with associated nausea and vomiting in did she returned to the ED. On presentation, pt was afebrile, WBC 13.5, LFTs were elevated, total bilirubin 2.4, and CT abdomen/pelvis revealed findings consistent with acute cholecystitis. The patient was admitted to the hospitalist service for further evaluation management and was seen in consultation by Gastroenterology and General surgery. Please see above for further details. Had clinical improvement following IV antibiotics, fluids, and bowel rest. Diet was slowly advanced and was able to tolerate a low-fat diet. Leukocytosis resolved and they had symptomatic clinical improvement. Given the patient's overall improvement, pt was determined to no longer require inpatient care and was discharged in hemodynamically stable condition. Discussed worrisome signs and symptoms for which to return and educated on medications. Will follow up with general surgery as an outpatient. Status at Discharge Functional status at discharge: independent ambulation Overall status at discharge: patient is progressing back to baseline Time Spent with Patient Time attestation: Total time spent providing and/or coordinating discharge services: 40 minutes Time spent: Greater than 30 minutes Exam Narrative: General: Well-nourished, well-appearing 21-year-old female, sitting up in bed, comfortable, NARD Neuro: awake, alert and oriented x4, speech jhonatan
[2022-01-28 11:06] LABS: Vitamin D 1,25 (OH)2 Total 39 pg/mL (18-72); Vitamin D2 1,25 (OH)2 <8 pg/mL; Vitamin D3 1,25 (OH)2 39 pg/mL
== END 2022-01-27 17:20 | disposition home or self-care (01) ==
LOC: ANHED 15:03 → ANH3MED 15:53
PROVIDERS: Internal Medicine Gastroenterology; Nurse Practitioner Adult Health; Physician Assistant; Admitting Provider Family Medicine; Emergency Provider Emergency Medicine; Visit Provider Family Medicine
DX: K80.62 Calculus of gallbladder and bile duct with acute cholecystitis without obstruction (principal); R74.01 Elevation of levels of liver transaminase levels; F41.8 Other specified anxiety disorders; F12.90 Cannabis use, unspecified, uncomplicated; E66.9 Obesity, unspecified; Z68.34 Body mass index [BMI] 34.0-34.9, adult; F17.290 Nicotine dependence, other tobacco product, uncomplicated
CPT/HCPCS: 36415; 74176; 74183; 76376; 78227; 80048; 80053; 80076; 81001; 81025; 82652; 83605; 83690; 83735; 84100; 84436; 84443; 85025; 85027; 85610; 87040; 87076; 96361; 96365; 96366; 96375; 96376; 99285; A9270; A9537; A9577; G0378; J1170; J2270; J2405; J2543; J7030

== ENCOUNTER 2022-02-13 10:24 | Outpatient (CLI) | payer OTHER, SELFPAY ==
[2022-02-13 10:56] LABS: Alanine Aminotransferase 21 U/L (6-35); Albumin Level 4.4 g/dL (3.5-5.1); Alkaline Phosphatase 80 U/L (38-126); Amylase 56 U/L (30-110); Aspartate Amino Transferase 23 U/L (14-36); Bilirubin,Total 0.4 mg/dL (0.2-1.3); Lipase 94 U/L (23-300)
== END 2022-02-13 10:25 | disposition home or self-care (01) ==
LOC: ANHSURGERY 10:28
PROVIDERS: Visit Provider Surgery
DX: K81.9 Cholecystitis, unspecified (principal); Z01.818 Encounter for other preprocedural examination
CPT/HCPCS: 36415; 80076; 82150; 83690; 86850; 86900; 86901

== ENCOUNTER 2022-02-20 02:07 | Day surgery (SDC) | payer OTHER, SELFPAY ==
[2022-02-12 13:26] VITALS: BMI 36.6
--- NOTE | 2022-02-12 13:31 | PC.NURSE ---
Report to the Outpatient Waiting Room, entrance under the green pavilion located off [facility], at time _0630_ on date _[id number]_. OR Time: _0830_. - You and your visitor will be asked a series of questions to screen for COVID 19 for your protection. - Only one visitor is allowed at this time. - The patient visitor is requested to leave or wait in car when not with patient. - A mask is required within the hospital. Patients may have clear liquids (water, carbonated beverages, clear teas, apple juice) until 3 hours prior to surgery with a maximum of 20 ounces. - No food from midnight until time of surgery Take the following medications with a SIP of water the morning of surgery: ____None Medications to discontinue per physician ____None Date to take last dose Please no make-up, nail wolof, hairspray, perfume, deodorant, or body powder the day of surgery. No jewelry (including any body piercings) or valuables the day of surgery, leave them at home. Please take a shower or bath the night before, or the morning of, surgery with an antibacterial soap. Wear comfortable, loose fitting clothing. Children are encouraged to wear pajamas. - Jewelry must be removed prior to entering the operating room. Rings and piercings that are not removed may be cut off. - The hospital will not accept responsibility for valuables. - Please leave all valuables, including medications, at home the day of surgery. If you are going home after surgery, a licensed [employer] driver must drive you home. - NO public transportation without another adult. - We recommend that an adult stay with you for 24 hours following discharge. - We also recommend that you do not drive, make important decision, drink alcoholic beverages, or take any drugs that were not prescribed by your health care provider for at least 24 hours after your discharge time. Follow any additional instructions given to you from your surgeon. If you or anyone in your household have experienced Covid symptoms in the past week, please notify your surgeon or the nurse liaison at the phone number below for possible testing. Telephone instructions given to ___Patient and asked if any additional questions and then verbalized understanding. Patient advised to call surgeon office or pre surgery nurse liaison [phone] if any additional questions.
[2022-02-20] VITALS (7 sets, daily range): BP systolic 99–117; BP diastolic 46–71; PULSE 55–82; RESP 12–16; TEMP 36.1–36.8; O2SAT 97–100
--- NOTE | ~2022-02-20 | XR_ITS ---
EXAMINATION: XR cholangiogram surg 1st inj DATE: 02/20/2022 09:59 INDICATION: Intraoperative evaluation during laparoscopic cholecystectomy TECHNIQUE: Multiple fluoroscopic images of the right upper quadrant were obtained during intraoperati ve cholangiography. A total of 130 fluoroscopic images were obtained. The amount of fluoroscopy time used during this procedure was 0.5 minutes. Total DAP was 0.4022 mGym^2 COMPARISON: None. FINDINGS: Cannulation of the cystic duct demonstrates filling of a normal appearing common bile duct which tapers smoothly distally with no intraluminal filling defects or stricture. Contrast extends i nto the duodenum, central intrahepatic biliary tree and main pancreatic duct which also appears jessica l. IMPRESSION: 1. No filling defects or strictures within the common bile duct or contrast opacified central biliary tree. Reviewed, dictated and finalized at location B. IMPRESSION: 1. No filling defects or strictures within the common bile duct or contrast opa cified central biliary tree.
[2022-02-20] MEDS: ACETAMINOPHEN 500 MG TABLET 1000 MG PO (07:19)
[2022-02-20] MEDS: KETOROLAC 15 MG/ML VIAL (*BKC) IV PUSH (07:21)
[2022-02-20] MEDS: LACTATED RINGERS 1,000 ML 30 ML IV CONT ×2 (07:24→10:35)
--- NOTE | 2022-02-20 07:45 | P.PNAN_ITS ---
Anes - Initial Pre Proc Eval Procedure: Operation Date: 02/20/22 08:30 Proposed Procedures p Laparoscopic Cholecystectomy with Intraoperative Cholangiograms - Zeke Ngo MD Date/Time: 02/20/22 07:45 Surgeon: Zeke Ngo MD Pre Op Diagnosis: acute cholecystitis with stones Patient Data Age: 21 Gender: F Height: 1.57 m Weight: 91 kg Allergies Allergy/AdvReac Type Severity Reaction Status Date / Time No Known Allergies Allergy Verified 02/12/22 13:24 Home Medications Medication Instructions Recorded Confirmed Type paroxetine HCl 30 mg tablet 30 mg PO HS 09/08/21 02/12/22 History trazodone 50 mg tablet 25 mg PO HS 09/08/21 02/12/22 History cholecalciferol (vitamin D3) 125 125 mcg PO HS 09/29/21 02/12/22 History mcg (5,000 unit) tablet (Vitamin D3) loratadine 10 mg tablet (Claritin) 10 mg PO DAILY 09/29/21 02/12/22 History Patient hx anesthesia problems: none Family hx anesthesia problems: none Results Review: All pre-operative results and documents have been reviewed as part of the pre- operative evaluation. [facility] Past Medical History Medical History Anxiety Cystic teratoma Left oophorectomy Depression Marijuana use Obesity Surgical History Surgical History H/O ovarian cystectomy Family History Family History Mother Carcinoma of colon Neely syndrome Social History Social History Smoking status: Current every day smoker Tobacco type: e-cigarettes/vaping Alcohol intake: current Drinks per week: 1 Substance use: current Substance use type: marijuana Other substance usage details: medical marijuana Living arrangements: with family Gender identity (if verbalized by the patient): Female Sexual Orientation (if Verbalized by the Patient): Straight or Heterosexual Spiritual care concerns: No Anes - Eval Final PreProcedure Day of Procedure 02/20/22 07:45 Patient weight: obese Heart: regular rate and rhythm Lungs: clear to auscultation Airway: Mallampati scale class 1 Neurological: alert and oriented Last oral intake: >/= 8 hours ASA classification: II Emergent: no Anesthetic plan: proceed Anesthesia type and monitoring: general and standard monitoring Results Review: All pre-operative results and documents have been reviewed as part of the pre- operative evaluation. Informed Consent: The patient's anesthetic plan and its attendant risks and benefits were discussed with the patient/family/POA. Questions were solicited and answers provided to the satisfaction of the patient/family/POA.
--- NOTE | 2022-02-20 08:23 | WPDHPUPDATE1 ---
History and Physical Update Update Date/Time: 02/20/22 08:23 History and Physical has been reviewed, including an updated exam of the patient. There are NO changes in the patient's condition. Risks, benefits, and alternatives have been discussed and questions answered. Patient agrees to proceed with procedure.
--- NOTE | 2022-02-20 08:42 | W.PM.PROC2 ---
Procedure Note - Detailed Date of Procedure 02/20/22 Pre-op Diagnosis Chronic cholecystitis with stones Post-op Diagnosis Same Procedure Performed Laparoscopic cholecystectomy with intraoperative cholangiogram Surgeon Zeke Ngo MD [place] Ana Cristina Ruiz [facility] Anesthesia General and Local (1% lidocaine with epinephrine) Indications Patient is a 21-year-old woman who started having severe right upper quadrant abdominal pain after eating some chicken wings around the end of December. She was noted at that time to have abnormal LFTs and an elevated bilirubin as well. Ultrasound showed gallstones and acute cholecystitis. MRCP was done and did not show common bile duct stones. The patient did have a HIDA scan which was consistent with acute cholecystitis. She has been on a low-fat diet and had minimal symptoms since then. She is taken to surgery now for laparoscopic cholecystectomy with intraoperative cholangiogram. Findings Chronic inflammation was noted, there was evidence of stones in the gallbladder, cholangiogram showed prompt duodenal filling and no evidence of common bile duct stones. There were multiple small stone fragments in the distal gallbladder noted while doing the cholangiogram. Description of Procedure The patient was taken to surgery and induced into general anesthesia. The abdomen is prepped and draped. Trocars were placed in the usual fashion using 1% lidocaine with epinephrine and applied Medical optical trocars. A 5 mm camera was used. The gallbladder was freed from adhesions. It was obviously thickened and somewhat edematous. It was distended. A laparoscopic aspirator was used and the gallbladder was decompressed. The cholecystotomy was closed with a Vicryl endoloop. The gallbladder was then retracted anterosuperiorly. Dissection was carried out in the cholecystohepatic triangle. The cystic artery wrapped from the gallbladder around the upper cystic duct and then down to the portal triad. The cystic artery was dissected free from the cystic duct. It was securely clamped and divided. We then continued our dissection of the cystic duct and dissected the gallbladder off the liver. Critical view was achieved. I then put a clip on the distal gallbladder just above the cystic duct. The cystic duct scissors were used to make a small opening in the cystic duct. Some small yellowish stone fragments were noted emanating from the distal gallbladder. These were suctioned away and removed. I then was able to pass a cholangiogram catheter into the cystic duct. C-arm was brought into the field. Cine fluoroscopy with the C-arm was then carried out and a cholangiogram was performed. There was no biliary ductal dilatation. Duodenal filling was prompt. The cholangiogram looked negative to me and after conferring with the radiologist, it was felt to be negative as well from radiology standpoint. We then removed the cholangiogram catheter. The cystic duct was securely clipped and divided. The gallbladder was then dissected free from the liver. This dissection was somewhat difficult old as there was considerable amount of inflammation and tissue planes were obscured. The gallbladder was not entered but there were a couple of areas where the liver was superficially entered. This was controlled with cautery. Eventually the gallbladder was dissected entirely free from the liver. I then exposed the gallbladder fossa. Cautery was used and hemostasis was achieved. We irrigated and suctioned the right upper quadrant. This was done repeatedly. All looked good with no evidence of bleeding or bile leakage. I then placed in Endo-Catch bag in the abdomen through the 10 11 epigastric trocar site. The gallbladder was extricated in the Endo-Catch bag through the 10 11 trocar site. I had to enlarge the trocar site to accommodate the gallbladder which had numerous stones and a very thickened wall. Eventually the gallbladder was extricated. We r
[2022-02-20] MEDS: ceFAZolin 2 GM/D5W 50 ML 2 GM/50 ML BAG IVPB (08:52)
[2022-02-20] MEDS: LIDO 2%/EPINEPHRINE 1:100,000 20 ML VIAL INFILTRATE (09:57)
== END 2022-02-20 12:25 | disposition home or self-care (01) ==
PROVIDERS: Visit Provider Surgery
PROC: 0FT44ZZ Resection of Gallbladder, Percutaneous Endoscopic Approach (ICD-10-PCS; CPT 47562; principal; 2022-02-20 08:30)
DX: K80.10 Calculus of gallbladder with chronic cholecystitis without obstruction (principal); F41.9 Anxiety disorder, unspecified; F32.A Depression, unspecified; F12.90 Cannabis use, unspecified, uncomplicated; E66.9 Obesity, unspecified; Z68.35 Body mass index [BMI] 35.0-35.9, adult; F17.290 Nicotine dependence, other tobacco product, uncomplicated
CPT/HCPCS: 47563; 36415; 74300; 80076; 82150; 83690; 86850; 86900; 86901; 88304; A9270; C1713; J0330; J0690; J1100; J1885; J2250; J2270; J2405; J2704; J7120; Q9966

== ENCOUNTER 2024-03-16 21:26 | Emergency (ER) | payer OTHER, SELFPAY ==
--- NOTE | ~2024-03-16 | XR_ITS ---
XR chest 2V Ordering provider: Chris Dorsey MD History: 23 years Female with . shortness of breath . Comparison: None. FINDINGS: MEDIASTINUM: The cardiac silhouette is not enlarged. LUNGS: No infiltrates, effusions or pneumothorax. OTHER: No free air under the diaphragm. IMPRESSION: No acute cardiopulmonary pathology. Reviewed, dictated and finalized at location A.
[2024-03-16 21:33] VITALS: BP 132/102; PULSE 77; RESP 30; TEMP 36.1; O2SAT 99
--- NOTE | 2024-03-16 21:39 | ECG_ITS ---
Test Date: 2024-03-16 21:54:27 Measurements Intervals [place] Rate: 63 P: 52 CO: 198 QRS: 24 QRSD: 92 T: 47 QT: 396 QTc: 407 Interpretive Statements SINUS RHYTHM WITH MARKED SINUS ARRHYTHMIA BASELINE ARTIFACT- I, II, AVR, AVL NORMAL ECG No previous ECG available for comparison Electronically Signed On 03-17-2024 05:52:37 CDT by Joshua Doty D.O.
[2024-03-16 21:42] VITALS: O2SAT 100
[2024-03-16 21:53] LABS: Basophils Percent Auto 0.2 % (0.2-1.2); Eosinophils Percent Auto 0.1 % (0-4.4); Hematocrit 43.3 % (37.0-47.0); Hemoglobin 15.4 g/dL (12.0-15.0); Immature Granulocyte Percent A 0.5 % (0-0.5); Lymphocytes Absolute Auto 3.19 K/mm3 (0.9-3.2); Lymphocytes Percent Auto 17.1 % (18.3-44.2); Mean Corpuscular HGB Conc 35.6 g/dl (32-36); Mean Corpuscular Hemoglobin 29.9 pg (26-34); Mean Corpuscular Volume 84.1 fl (80-100); Mean Platelet Volume 10.3 fl (7.4-10.4); Monocytes Percent Auto 5.3 % (2.6-8.5); Neutrophils Absolute Auto 14.3 K/mm3 (1.3-6.7); Neutrophils Percent Auto 76.8 % (45.5-73.1); Platelet Count Result 345 k/mm3 (150-375); Red Blood Count 5.15 M/mm3 (4.2-5.4); Red Cell Distribution Width 12.8 % (11.5-14.5); White Blood Count 18.6 K/mm3 (4.5-10.0)
[2024-03-16 22:06] LABS: Alanine Aminotransferase 49 U/L (6-35); Alkaline Phosphatase 83 U/L (38-126); Anion Gap 18 mmol/L (4-12); Aspartate Amino Transferase 34 U/L (14-36); Bilirubin,Total 0.7 mg/dL (0.2-1.3); Blood Urea Nitrogen 14 mg/dL (7-17); Calcium 9.9 mg/dL (8.4-10.2); Carbon Dioxide 14 mmol/L (22-30); Chloride 108 mmol/L (98-107); Estimated CRCL calculation 115 ml/min; Estimated Glomerular Filt Rate > 60; Glucose 99 mg/dL (65-110); Magnesium 1.8 mg/dL (1.6-2.3); Sodium 140 mmol/L (137-145)
[2024-03-16 22:29] LABS: Influenza A QL RT-PCR Negative (Negative); Influenza B QL RT-PCR Negative (Negative); RSV RNA, RT-PCR Negative (Negative); SARS-CoV-2 RNA PCR Negative (Negative)
[2024-03-16 22:38] VITALS: BP 125/66; PULSE 69; RESP 13; O2SAT 100
[2024-03-16] MEDS: IPRATROPIUM 0.5 MG/ALBUTEROL SULFATE 2.5 MG AMPUL.NEB 3 ML INHALATION ×2 (22:39→23:50)
[2024-03-16 22:40] VITALS: PULSE 65; RESP 13
[2024-03-16 22:47] VITALS: PULSE 70; RESP 12
[2024-03-16] MEDS: methylPREDNISolone SOD SUCC 125 MG VIAL IV PUSH (23:08)
--- NOTE | 2024-03-16 23:38 | ED.ASTHMA ---
HPI - Asthma General Chief Complaint: Asthma Stated Complaint: sob Time Seen by Provider: 03/16/24 22:35 History of Present Illness HPI Narrative: 23-year-old female with reported history of asthma presents to emergency department with concerns for an asthma attack. Patient's mother at bedside he was assist with history. Patient states yesterday she began having difficulty breathing and asthma flare up. States she has not had an asthma exacerbation about 10 years. She went to urgent care twice yesterday and received steroids, steroid shot and albuterol inhaler. States she has been to using these as directed without improvement in symptoms. She presents today due to persistent shortness of breath. She is reporting chest tightness, wheezing, intermittent productive cough. She denies fever, hemoptysis, lower extremity edema, calf pain, recent surgeries or hospitalizations, history of VTE. She also states that she has been very anxious and thinks that this is also contributing to her shortness of breath. She takes venlafaxine and trazodone has been taking these as directed but has been having some panic attacks over the past few days. Related Data Home Medications Medication Instructions Recorded Confirmed cholecalciferol (vitamin D3) 125 125 mcg PO HS 09/29/21 05/07/23 mcg (5,000 unit) tablet (Vitamin D3) loratadine 10 mg tablet (Claritin) 10 mg PO DAILY 09/29/21 05/07/23 Allergies Allergy/AdvReac Type Severity Reaction Status Date / Time No Known Allergies Allergy Verified 05/07/23 09:41 Review of Systems Review of Systems: All systems reviewed & are unremarkable except as noted in HPI and below PMFSH Past Medical History Medical History Anxiety Choledocholithiasis with acute cholecystitis Cystic teratoma Left oophorectomy Depression Family history of Neely syndrome Marijuana use Obesity Transaminitis Surgical History Surgical History H/O ovarian cystectomy S/P laparoscopic cholecystectomy laparoscopic cholecystectomy w/IOC 02/20/22 Family History Family History Mother Carcinoma of colon Neely syndrome Social History Social History (Reviewed 03/16/24 @ 23:39 by GINA Mathew Smoking status: Current every day smoker Tobacco type: e-cigarettes/vaping Alcohol intake: current Alcohol use details: seldom; socially Substance use: current Substance use type: marijuana Other substance usage details: medical marijuana Lack of Transportation: No Lack of Food: Never True Current Housing: I Have Housing Concerned About Future Housing: No Difficulty Paying Gas/Electric Bills: No Difficulty Paying for Meds: No Currently Unemployed: No Education: High School Diploma/GED Difficulty w/ Childcare or Family Care: No Living arrangements: with family Occupation/Education: unemployed Gender identity (if verbalized by the patient): Male Sexual Orientation (if Verbalized by the Patient): pansexual Spiritual care concerns: No Exam Narrative: GENERAL: Well-appearing, well-nourished, and in no acute distress. Anxious appearing HEAD: Normocephalic, atraumatic. EYES: PERRLA and EOMI. ENT: Nares clear, no rhinorrhea or epistaxis. Mucous membranes moist. Posterior pharynx erythema or edema. Uvula midline NECK: Supple. CHEST: Clear to auscultation. No respiratory distress. Patient satting 100% on 1 L nasal cannula on my evaluation. She is speaking in full sentences HEART: Regular rate and rhythm. No murmur heard. Normal peripheral pulses. ABDOMEN: Soft, nontender, nondistended, normal active bowel sounds. EXTREMITIES: Normal range of motion. No edema. Negative Homans bilaterally SKIN: Warm, dry, no rash. NEURO: No focal deficits. Alert and oriented x3 Course Vital Signs Vital si
[2024-03-16 23:54] VITALS: PULSE 80; RESP 16
[2024-03-16 23:59] LABS: D Dimer < 0.27 ug/mL (<0.48)
[2024-03-17] MEDS: POTASSIUM CHLORIDE 20 MEQ PACKET (FOR LIQUID) 40 MEQ PO (00:02)
[2024-03-17] MEDS: SODIUM CHLORIDE 0.9% IV 1,000 ML 999 ML IV CONT (00:03)
[2024-03-17] MEDS: LORazepam INJ (*CRX) 2 MG/ML VIAL 0.5 MG IV PUSH ×2 (00:03→00:24)
[2024-03-17 00:08] LABS: Troponin I < 0.012 ng/mL (0.000-0.034)
[2024-03-17 00:25] LABS: Magnesium 1.8 mg/dL (1.6-2.3)
[2024-03-17 00:49] VITALS: BP 103/60; PULSE 124; RESP 15; O2SAT 100
[2024-03-17 03:52] VITALS: BP 101/60; PULSE 115; RESP 12; O2SAT 96
== END 2024-03-17 03:53 | disposition home or self-care (01) ==
PROVIDERS: Emergency Medicine; Emergency Provider Physician Assistant; PCP Family Medicine
DX: R06.00 Dyspnea, unspecified (principal); F41.9 Anxiety disorder, unspecified; E87.6 Hypokalemia; Z20.822 Contact with and (suspected) exposure to COVID-19; J45.909 Unspecified asthma, uncomplicated; E66.9 Obesity, unspecified; Z68.38 Body mass index [BMI] 38.0-38.9, adult; F32.A Depression, unspecified; F17.290 Nicotine dependence, other tobacco product, uncomplicated; Z90.49 Acquired absence of other specified parts of digestive tract; Z79.899 Other long term (current) drug therapy
CPT/HCPCS: 36415; 71046; 80053; 83735; 84484; 85025; 85380; 87637; 93005; 94640; 96361; 96374; 99284; A9270; J2060; J2919; J7030